=== PATIENT | male | born 1955 | race Caucasian/White ===

== ENCOUNTER 2017-04-10 19:46 | Inpatient (IN) ==
[2017-04-10] MEDS ORDERED: *HR* FentaNYL (PF) 100 MCG/2 ML VIAL IVP ONE ×2 (20:18→21:55)
[2017-04-10] MEDS ORDERED: Ondansetron 4 MG/2 ML VIAL IVP ONE (20:18)
[2017-04-10] MEDS ORDERED: 0.9 % Sodium Chloride 1,000 ML IVC ONE (20:18)
[2017-04-10 20:26] LABS: Basophils # 0.1 K/mcL (0.0-0.2); Basophils % 0.5 %; Eosinophils % 0.4 %; Hemoglobin 15.3 g/dL (12.9-16.9); Immature Granulocytes % 0.4 % (0-4); Lymphocytes # 1.6 K/mcL (0.6-4.6); Lymphocytes % 14.3 %; Mean Corpuscular Hemoglobin 31.6 pg (28.0-33.3); Mean Platelet Volume 8.6 fL (9.4-12.4); Monocytes # 0.8 K/mcL (0.0-1.3); Monocytes % 7.6 %; Neutrophils # 8.5 K/mcL (1.6-8.9); Platelet Count 341 K/mcL (140-400); Red Blood Count 4.84 M/mcL (4.19-5.50); Red Cell Distribution Width 12.2 % (11.5-14.5); Segmented Neutrophils % 76.8 %
[2017-04-10 20:30] LABS: INR 0.9; Prothrombin Time 9.7 Seconds (9.4-12.1)
--- NOTE | 2017-04-10 20:38 | Emergency Department Note ---
Disposition Clinical Impression: Incarcerated hernia Disposition: Admitted As Inpatient Condition: Good Referrals: Santiago Camp DO [Primary Care Provider] - Forms: ED Satisfaction Letter, Work/School Release Abdominal Pain HPI - General Chief Complaint: ED Abdominal Pain Stated Complaint: ABD cramps, N/V, hernia groin Time Seen by Provider: 04/10/17 19:58 Source: patient Mode of arrival: private vehicle Limitations: no limitations Nursing Notes Reviewed: Yes Vital Signs Reviewed: Yes - History of Present Illness HPI Narrative: 61-year-old male history of prior inguinal hernia repair in 2008 with mesh placement, hypertension who presents to the ER due to right inguinal pain. Patient states this started around noon today. Reports a prior history of having complications in his groin roughly one year after the procedure. He has had no surgical intervention since. Reports today he noticed some bulging there and was able to partially reduce. States that it worsened to a point that it never got that bad before. He had extreme pain as well as nausea and vomiting. Reports he had 1 normal bowel movement today. No other abdominal surgical history. No other complaints. Pt Subjective Complaint: abdominal pain Onset (ago): hour(s) Consistency: constant Location: RLQ Pain Severity: moderate Pain Scale: 6 Quality: stabbing Radiation: none Migration to: no migration Improves with: nothing Worsens with: nothing Context: history of similar episodes Associated symptoms: Reports: nausea, vomiting. Denies: diarrhea, fever, dysuria, hematuria Treatments prior to arrival: none - Related Data Home Medications Medication Instructions Recorded Confirmed Aspirin [Lo-Dose Aspirin EC] 81 mg PO DAILY 04/10/17 04/10/17 Losartan Potassium [Cozaar] 50 mg PO DAILY 04/10/17 04/10/17 Nitroglycerin [Nitrostat] 0.4 mg SL Q5M PRN 04/10/17 04/10/17 Previous Rx's Medication Instructions Recorded Metoprolol [Lopressor] 25 mg PO BID #75 tablet 10/29/14 Allergies Allergy/AdvReac Type Severity Reaction Status Date / Time No Known Allergies Allergy Verified 10/28/14 06:23 All systems ED: reviewed and negative except as stated. Constitutional: Denies: fever Cardiovascular: Denies: chest pain Respiratory: Denies: dyspnea Gastrointestinal: Reports: abdominal pain, nausea, vomiting. Denies: diarrhea Genitourinary: Denies: dysuria, hematuria Abdominal Pain PMH - Past Medical History Medical history: Reports: no medical history, arthritis, hypertension, other Male Surgical History: Reports: herniorrhaphy Psychiatric history: Reports: no psych history - Social History Smoking status: Former smoker Alcohol use: Reports: occasionally Drug use: Reports: none Physical Exam - General Limitations: no limitations General appearance: alert, anxious - Head Head exam: atraumatic - Eye Eye exam: Present: normal appearance - ENT ENT exam: normal exam - Neck Neck exam: Present: normal inspection - Chest Chest inspection: Present: normal inspection, symmetric chest wall rise - Respiratory Respiratory exam: Present: normal lung sounds bilaterally - Cardiovascular Cardiovascular exam: Present: regular rate, normal rhythm, normal heart sounds - Abdominal Exam Abdominal exam: Present: soft, tenderness (Patient has exquisite tenderness to the right inguinal area with a small mass palpated in the area.), guarding. Absent: rigidity - Male exam: Present: inguinal hernia (Right) - Extremities Exam Extremities exam: Present: normal inspection, full ROM - Expanded Upper Extremity Exam Shoulder exam: Present: normal inspection, full ROM Arm exam: Present: normal inspection, full ROM Elbow exam: Present: normal inspection, full ROM Forearm/Wrist exam: Present: normal inspection, full ROM Hand exam: Present: normal inspection, full ROM - Expanded Lower Extremity Exam Hip/Pelvis exam: Present: normal inspection, full ROM Upper leg exam: Present: normal inspection, full ROM Knee exam: Present: normal inspection, full ROM Lower leg exam: Present: normal inspection, full ROM Ankle exam: Present: normal inspection, full ROM Foot/toe exam: Present: normal inspection, full ROM - Psychiatric Psychiatric exam: Present: anxious Course Course Narrative: Patient seen and examined. He is noted to have an inguinal mass. I attempted to place the patient in Trendelenburg and reduce without success. I will speak with the on-call surgeon as well as obtain a CT scan, labs, urinalysis. We will give him some IV fluids, pain meds and nausea medications. - Reevaluation(s) Reevaluation #1: Attending was able to manually reduce the patient's hernia. He has improvement of symptoms at this time. Reevaluation #2: I discussed results of imaging and labs with the patient as well as surgical recommendations. I offered the patient admission versus outpatient management. He feels concerned going home as he had never had his hernia not be reducible before. States that it continues to come out whenever he stands up or coughs. He feels more comfortable staying in the hospital. His pain is well-controlled at this time. No evidence of incarcerated hernia on exam after CT imaging. - Consultations Consultation #1: I spoke with the on-call surgeon Dr. Smith given the physical exam findings and concern for incarcerated or strangulate and hernia. Patient has CT orders and. He reports to give him a call if the patient is back from CT. Time: 20:37 Consultation #2: I spoke again with the on-call surgeon Dr. Ambriz. Reported that the hernia was manually reduced and the patient's CT scan was up for review. Consultation #3: Discussed the patient with Dr. Ambriz. The patient feels more comfortable staying here at this time. He recommends to admit to the hospitalist and they will see the patient in consultation. Vital Signs Temperature 98.9 F 04/10/17 19:51 Pulse Rate 79 04/10/17 19:51 Respiratory Rate 18 04/10/17 19:51 Blood Pressure 186/103 04/10/17 19:51 O2 Sat by Pulse Oximetry 98 04/10/17 19:51 Temperature 98.9 F 04/10/17 19:51 Pulse Rate 71 04/10/17 22:36 Respiratory Rate 18 04/10/17 22:36 Blood Pressure 145/83 04/10/17 22:36 O2 Sat by Pulse Oximetry 98 04/10/17 22:36 Oxygen Delivery Oxygen Delivery Room Air Abdominal Pain - MDM Narrative Medical decision making narrative: 61-year-old male presents to the ER due to right inguinal pain. Prior history of hernia repair in 2008 here. Pain started around noon today with a noticeable bulge. He was able to partially reduce it earlier but it worsened throughout the day. He came and nauseated and vomiting with pain focal to that area. He had an incarcerated hernia on exam at presentation. I attempted to reduce the hernia without success. Attending was able to reduce his hernia with immediate relief of symptoms. CT scan without evidence of hernia at this time with some bowel wall edema in the adjacent area. Otherwise reviewed and unremarkable. I spoke with the on-call surgeon several times about this patient. His pain is well improved after reduction. He is admitted to the hospitalist service with surgical consultation. - Lab Data Lab results reviewed: Yes I reviewed the patient's lab results. Result diagrams: 04/10/17 20:13 04/10/17 20:13 Lab Results 04/10/17 04/10/17 04/10/17 Range/Units 20:13 20:13 20:13 WBC 11.0 (4.3-11.1) K/mcL RBC 4.84 (4.19-5.50) M/mcL Hgb 15.3 (12.9-16.9) g/dL Hct 45.0 (37.5-50.1) % MCV 93.0 (83.0-100.0) fL MCH 31.6 (28.0-33.3) pg MCHC 34.0 (31.6-35.5) g/dL RDW 12.2 (11.5-14.5) % Plt Count 341 (140-400) K/mcL MPV 8.6 L (9.4-12.4) fL Immature Gran % 0.4 (0-4) % Seg Neutrophils % 76.8 % Lymphocytes % 14.3 % Monocytes % 7.6 % Eosinophils % 0.4 % Basophils % 0.5 % Neutrophils # 8.5 (1.6-8.9) K/mcL Lymphocytes # 1.6 (0.6-4.6) K/mcL Monocytes # 0.8 (0.0-1.3) K/mcL Eosinophils # 0.0 (0.0-0.6) K/mcL Basophils # 0.1 (0.0-0.2) K/mcL PT 9.7 (9.4-12.1) Seconds INR 0.9 Sodium 133 L (136-145) mEq/L Potassium 4.5 (3.5-5.1) mEq/L Chloride 101 (98-107) mEq/L Carbon Dioxide 24 (23-29) mEq/L BUN 16 (8-23) mg/dL Creatinine 0.99 (0.70-1.30) mg/dL Est GFR ( Amer) > 60 (> 60) Est GFR (Non-Af Amer) > 60 (> 60) BUN/Creatinine Ratio 16 (6-26) Glucose 111 H (70-105) mg/dL Calculated Osmolality 278 L (280-300) Lactic Acid (0.5-2.2) mmol/L Calcium 9.9 (8.6-10.3) mg/dL Total Bilirubin 0.9 (0.3-1.0) mg/dL Direct Bilirubin 0.2 (0.0-0.2) mg/dL Indirect Bilirubin 0.7 (0.0-1.2) mg/dL AST 17 (13-39) Units/L ALT 17 (7-52) Units/L Alkaline Phosphatase 74 (34-104) Units/L Serum Total Protein 6.9 (6.4-8.9) g/dL Albumin 4.2 (3.5-5.7) g/dL Globulin 2.7 (2.4-3.5) g/dL Albumin/Globulin Ratio 1.6 (1.1-2.2) Lipase 13 (11-82) Units/L Urine Color (Yellow) Urine Clarity (Clear) Urine pH (5.0-8.0) pH Units Ur Specific Carson (1.010-1.025) Urine Protein (Neg-Trace) mg/dL Urine Glucose (UA) (Normal) mg/dL Urine Ketones (Negative) mg/dL Urine Blood (Negative) Urine Nitrite (Negative) Urine Bilirubin (Negative) Urine Urobilinogen (Normal) mg/dL Ur Leukocyte Esterase (Negative) Urine Microscopic RBC (0-3) per hpf Urine Microscopic WBC (0-3) per hpf Ur Squamous Epith Cells (None-Few) per lpf Urine Bacteria (None-Few) per hpf Hyaline Casts (None-Few) per lpf Ur Culture Indicated? (NO) 04/10/17 04/10/17 Range/Units 20:13 20:56 WBC (4.3-11.1) K/mcL RBC (4.19-5.50) M/mcL Hgb (12.9-16.9) g/dL Hct (37.5-50.1) % MCV (83.0-100.0) fL MCH (28.0-33.3) pg MCHC (31.6-35.5) g/dL RDW (11.5-14.5) % Plt Count (140-400) K/mcL MPV (9.4-12.4) fL Immature Gran % (0-4) % Seg Neutrophils % % Lymphocytes % % Monocytes % % Eosinophils % % Basophils % % Neutrophils # (1.6-8.9) K/mcL Lymphocytes # (0.6-4.6) K/mcL Monocytes # (0.0-1.3) K/mcL Eosinophils # (0.0-0.6) K/mcL Basophils # (0.0-0.2) K/mcL PT (9.4-12.1) Seconds INR Sodium (136-145) mEq/L Potassium (3.5-5.1) mEq/L Chloride (98-107) mEq/L Carbon Dioxide (23-29) mEq/L BUN (8-23) mg/dL Creatinine (0.70-1.30) mg/dL Est GFR ( Amer) (> 60) Est GFR (Non-Af Amer) (> 60) BUN/Creatinine Ratio (6-26) Glucose (70-105) mg/dL Calculated Osmolality (280-300) Lactic Acid 1.1 (0.5-2.2) mmol/L Calcium (8.6-10.3) mg/dL Total Bilirubin (0.3-1.0) mg/dL Direct Bilirubin (0.0-0.2) mg/dL Indirect Bilirubin (0.0-1.2) mg/dL AST (13-39) Units/L ALT (7-52) Units/L Alkaline Phosphatase (34-104) Units/L Serum Total Protein (6.4-8.9) g/dL Albumin (3.5-5.7) g/dL Globulin (2.4-3.5) g/dL Albumin/Globulin Ratio (1.1-2.2) Lipase (11-82) Units/L Urine Color Yellow (Yellow) Urine Clarity Clear (Clear) Urine pH 5.5 (5.0-8.0) pH Units Ur Specific Carson 1.028 H (1.010-1.025) Urine Protein Trace (Neg-Trace) mg/dL Urine Glucose (UA) Normal (Normal) mg/dL Urine Ketones 15 H (Negative) mg/dL Urine Blood Negative (Negative) Urine Nitrite Negative (Negative) Urine Bilirubin Negative (Negative) Urine Urobilinogen Normal (Normal) mg/dL Ur Leukocyte Esterase Negative (Negative) Urine Microscopic RBC 5-15 H (0-3) per hpf Urine Microscopic WBC 0-3 (0-3) per hpf Ur Squamous Epith Cells Many H (None-Few) per lpf Urine Bacteria None Seen (None-Few) per hpf Hyaline Casts None Seen (None-Few) per lpf Ur Culture Indicated? NO (NO) - Radiology Data Radiology results reviewed: Yes I reviewed the patient's radiology results. Abdomen/Pelvis CT 04/10/17 20:19 IMPRESSION: Several mildly thickened loops of small bowel in the right lower quadrant and pelvis, nonspecific but possibly related to enteritis. No overt evidence of bowel obstruction. Small amount of free fluid in the pelvis is nonspecific, possibly reactive. Small 5 mm noncalcified nodule in the right lower lobe. Follow-up recommendations as below. RECOMMENDATIONS: Fleischner Society guidelines for follow-up and management of incidentally detected pulmonary nodules: Single Solid Nodule: Nodule size less than 6 mm In a low-risk patient, no routine follow-up. In a high-risk patient, optional CT at 12 months. - Low risk patients include individuals with minimal or absent history of smoking and other known risk factors. - High risk patients include individuals with a history or smoking or known risk factors. Radiology 2017 http://pubs.rsna.org/doi/full/[email or web address]/[email or web address] D/ / 04/10/2017 21:42:37 Montrell Aden MD / ana Interpreting Provider: Montrell Aden MD S.Louisa - BriannaANick Situation: Demographics, MOA Background: Presenting Complaint, Relevant PMH, Meds, & Allergies Assessment: Course and respsone to treatment, Exam Concerns, Patient/Family Expectation, Pertinant Lab Results Recommendation: Barrier(s) to disposition, Recommendation based on pending studies, treatments, or consults S.B.A.Adolfo Report Given to: Dr. Kamaljit Marcial Repor Time: 22:53 Attestation Statement - Attestation Attestation: I, Hayden Marie MD, personally evaluated this patient and discussed their management with the resident physician. I reviewed the resident's note and agree with the documented findings, medical decision making, and plan of care. 61-year-old male with history of right inguinal hernia repair 9 years ago presents to the emergency department with a complaint of pain in the right inguinal region which started about noon today. About 4 PM he noticed a bulge in the right groin and had increased pain. He states he went home and laid down in the saws that did not seem to go down some of the pain improved but then it got worse. He developed severe pain with nausea and vomiting. On examination patient is a well-developed well-nourished male in no acute distress but does appear to be in severe discomfort. He is alert and oriented 3. There is no cyanosis or diaphoresis. Breath sounds are equal bilaterally. Heart regular rate and rhythm. Abdomen is soft with present bowel sounds. There is an obvious firm tender bulge in the right inguinal region. Labs reviewed. I was able to reduce the hernia with constant firm pressure for several minutes. Patient had improvement in his discomfort but continues to complain of pain in the right inguinal region. CT of the abdomen and pelvis with contrast obtained and shows several mildly thickened loops of small bowel in the right lower quadrant and pelvis, nonspecific but possibly related to enteritis. No overt evidence of bowel obstruction. Dr. Sheets discussed the case with the surgeon nurse practitioner per diem, Dr. Ambriz. The hospitalist , Dr. Mari, was consulted and accepted the admission of the patient medical service with surgery consultation.
[2017-04-10 20:46] LABS: Alanine Aminotransferase 17 Units/L (7-52); Albumin 4.2 g/dL (3.5-5.7); Albumin/Globulin Ratio 1.6 (1.1-2.2); Alkaline Phosphatase 74 Units/L (34-104); Aspartate Amino Transferase 17 Units/L (13-39); BUN/Creatinine Ratio 16 (6-26); Bilirubin,Direct 0.2 mg/dL (0.0-0.2); Bilirubin,Indirect 0.7 mg/dL (0.0-1.2); Bilirubin,Total 0.9 mg/dL (0.3-1.0); Blood Urea Nitrogen 16 mg/dL (8-23); Calcium 9.9 mg/dL (8.6-10.3); Carbon Dioxide 24 mEq/L (23-29); Chloride 101 mEq/L (98-107); Globulin 2.7 g/dL (2.4-3.5); Glucose 111 mg/dL (70-105); Lipase 13 Units/L (11-82); Osmolality,Calculated 278 (280-300); Potassium 4.5 mEq/L (3.5-5.1); Sodium 133 mEq/L (136-145); Total Protein 6.9 g/dL (6.4-8.9); eGFR For African Americans > 60 (> 60); eGFR For Non-African Americans > 60 (> 60)
[2017-04-10 21:09] LABS: Bilirubin,Urine Negative (Negative); Blood,Urine Negative (Negative); Clarity,Urine Clear (Clear); Color,Urine Yellow (Yellow); Glucose,Urine (UA) Normal (Normal); Ketones,Urine 15 mg/dL (Negative); Leukocyte Esterase,Urine Negative (Negative); Nitrite,Urine Negative (Negative); PH,Urine 5.5 pH Units (5.0-8.0); Protein,Urine Trace mg/dL (Neg-Trace); Specific Gravity,Urine 1.028 (1.010-1.025); Urobilinogen,Urine Normal (Normal)
[2017-04-10 21:15] LABS: Bacteria,Urine None Seen per hpf (None-Few); Hyaline Casts,Urine None Seen per lpf (None-Few); Squamous Epithelial Cell,Urine Many per lpf (None-Few); WBC,Urine 0-3 per hpf (0-3)
--- NOTE | 2017-04-10 23:38 | Internal Med History&Physical ---
<Conner Cummings - Last Filed: 04/11/17 01:10> Date of Encounter: 04/11/17 Time of Encounter: 12:45 Assessment and Plan (1) Incarcerated hernia Current visit: Yes Status: Acute History of right inguinal hernia repaired in 2008 -- recurred in 2009 -- has been manually reducing since then with no further follow up Current incident irreducible at home; reduced in ED with significant effort -- small amount of herniated tissue still palpable on exam -- pain currently minimal Dr. Ambriz (surgery) consulted by ED prior to transfer to medical floor -- will keep patient NPO -- cont monitor tele and O2 -- PRN pain medications ordered -- NS at 125mL/hr -- await surg recommendations (2) Excessive drinking of alcohol Current visit: Yes Status: Chronic Drinks 6 beers daily No apparent signs/symptoms of withdrawal at this time Initiated CIWA protocol with necessary PRN orders (3) Hypertension Current visit: Yes Status: Acute Cont home meds Monitor Qualifiers: Hypertension type: essential hypertension Qualified Code(s): I10 - Essential (primary) hypertension (4) DVT prophylaxis Current visit: Yes Status: Acute Hold Rx prophylaxis SCDs and ambulate TID Internal Medicine - H&P: HPI Chief complaint: irreducible hernia Admitted From: Emergency Dept Plans for Post Hospital Care: Home History of present illness: Mr. Jimenez is a 61 year old male with apparent history of of right inguinal hernia and is s/p hernia repair in 2008. Had recurrence since 2009 that is usually induced by strenuous work and manually reducible. Recurrent bulging developed today with became irreducible and severely painful. Pain localized to right inguinal region over tissue bulge, was sharp/pulling in quality, and associated with diffuse abdominal cramping and several episodes of emesis. He tried to reduce it as he normally would by massaging area while supine which failed over 1 hour of effort. Patient did have BM during acute course. Denies fevers, syncope/presyncope, chest pain, palpitations, shortness of air, hematemesis, upper abdominal pain, dysuria, or leg swelling. Hernia was reduced in ED. Surg consulted (Dr. Ambriz) by ED team and agrees to see patient on IP basis. Past Med Surg Social Fam HX - Past Medical History Attestation: Yes The following information was validated with the patient. Source: patient Medical history: no medical history, arthritis, hypertension, other Psychiatric history: no psych history - Past Surgical History Surgical History: herniorrhaphy, other - Social History Smoking Status: Former smoker Smokeless Tobacco Status: Yes Alcohol use: occasionally, heavy (Beer -- (one) 6-pack per day) Drug use: none - Family History Mother Living Status: Hx Family Cardiac Disorders: Yes (rheumatic fever causing decreased heart function) Hx Family Respiratory Disorders: No Hx Family Cancer: No Hx Family GI Disorders: No Hx Family Endocrine Disorder: No Hx Family Neuromuscular Disorders: No Hx Family Neurologic Disorders: No Hx Family HEENT Disorders: No Hx Family Autoimmune Disorders: No Father Living Status: Hx Family Cardiac Disorders: Yes (irregular heart beat causing pacemaker placement.) Internal Medicine - H&P: Meds Metoprolol [Lopressor] 25 mg PO BID #75 tablet 10/29/14 [Rx] Aspirin [Lo-Dose Aspirin EC] 81 mg PO DAILY 04/10/17 [History] Losartan Potassium [Cozaar] 50 mg PO DAILY 04/10/17 [History] Nitroglycerin [Nitrostat] 0.4 mg SL Q5M PRN 04/10/17 [History] 3 Allergy/AdvReac Type Severity Reaction Status Date / Time No Known Allergies Allergy Verified 10/28/14 06:23 All Systems PM: A 10-system review of systems was performed and is negative for pertinent findings except as documented above in the HPI. - Constitutional Vitals: Temp Pulse Resp BP Pulse Ox 98.9 F 71 18 145/83 98 04/10/17 19:51 04/10/17 22:36 04/10/17 22:36 04/10/17 22:36 04/10/17 22:36 General appearance: Present: A&O X 3, no acute distress, answers questions appropriately - Head Head exam: Present: atraumatic, normocephalic - Eye Eye exam: Present: normal appearance, PERRL, conjuntiva pink, sclera anicteric - Neck Neck exam general surgery: Present: supple, trachea midline. Absent: lymphadenopathy - Respiratory Respiratory exam: Present: CTAB. Absent: accessory muscle use, rales, respiratory distress, rhonchi, stridor, wheezes - Cardiovascular Cardiovascular exam: Present: RRR, +S1, +S2. Absent: diastolic murmur, gallop, rubs, systolic murmur - GI/Abdominal GI/Abdominal exam: Present: normal bowel sounds, soft, no peritoneal signs. Absent: distended, tenderness Additional comments: Palpable soft tissue prominence in right inguinal region that is mildly tender to palpation; unable to reduce. Per patient, significant improvement over status prior to ED reduction. - Extremities Exam Extremities exam: Present: warm, radial pulses palpable and symmetrical. Absent : calf tenderness, cyanotic, pedal edema - Neurological Exam Neurological exam: Absent: facial droop, speech deficit - Skin Skin exam: Present: dry, intact, normal color. Absent: cyanosis, diaphoretic, mottled, pallor, rash Internal Med - H&P Results - Labs CBC & Chem 7: 04/10/17 20:13 04/10/17 20:13 <Yumiko Jones - Last Filed: 04/11/17 04:45> Date of Encounter: 04/11/17 Internal Medicine - H&P: HPI History of present illness: Mr. Jimenez is a 61 year old male All Systems PM: A 10-system review of systems was performed and is negative for pertinent findings except as documented above in the HPI. - Constitutional Vitals: Temp Pulse Resp BP Pulse Ox 97.7 F 65 16 142/78 99 04/11/17 03:58 04/11/17 03:58 04/11/17 03:58 04/11/17 03:58 04/11/17 03:58 Internal Med - H&P Results - Labs CBC & Chem 7: 04/10/17 20:13 04/10/17 20:13 - Attending Attestation I have seen and examined this patient independently. I have discussed with resident physician Dr. Cummings regarding the management plan, agreed with the documentation.
[2017-04-11] MEDS ORDERED: Nitroglycerin 0.4 MG TAB.SUBL SL PRN (00:42)
[2017-04-11] MEDS ORDERED: Naloxone 0.4 MG/ML INJ IVP PRN (00:59)
[2017-04-11] MEDS ORDERED: Acetaminophen 325 MG TABLET PO PRN (00:59)
[2017-04-11] MEDS ORDERED: traMADol 50 MG TABLET PO PRN (00:59)
[2017-04-11] MEDS ORDERED: *HR* LORazepam 2 MG/ML VIAL IVP PRN ×3 (01:02)
[2017-04-11] MEDS: 0.9 % Sodium Chloride 1,000 ML IVC SCH ×2 (01:52→09:13)
[2017-04-11 04:47] LABS: BUN/Creatinine Ratio 15 (6-26); Blood Urea Nitrogen 13 mg/dL (8-23); Calcium 8.4 mg/dL (8.6-10.3); Carbon Dioxide 25 mEq/L (23-29); Chloride 109 mEq/L (98-107); Glucose 105 mg/dL (70-105); Osmolality,Calculated 286 (280-300); Potassium 4.3 mEq/L (3.5-5.1); Sodium 138 mEq/L (136-145); eGFR For African Americans > 60 (> 60); eGFR For Non-African Americans > 60 (> 60)
[2017-04-11] MEDS ORDERED: Thiamine (B-1) 100 MG TABLET PO SCH (09:00)
[2017-04-11] MEDS ORDERED: Vitamin B Complex/Vit C/Vit E 1 EACH TABLET PO SCH (09:00)
[2017-04-11] MEDS ORDERED: Folic Acid 1 MG TABLET PO SCH (09:00)
--- NOTE | 2017-04-11 10:07 | Event Note ---
Date of Encounter: 04/11/17 Time of Encounter: 09:30 patient seen and examined; came to the ER overnight with incarcerated right inguinal hernia; was repaired open in 2008. The emergency department was able to reduce the hernia and the patient elected to be admitted because he wanted the problem taken care of this admission; Due to age and comorbidities, his history of a prior hernia repair, and the fact that his problem is no longer emergent, I would like to see him in my office today for a full evaluation and plan for PAT, and schedule for minimally invasive repair in the near future. The patient was in agreement with this plan.
--- NOTE | 2017-04-11 10:45 | Discharge Summary ---
Date of Encounter: 04/11/17 Time of Encounter: 10:43 - Discharge Diagnosis (1) Incarcerated hernia Priority: Primary Status: Acute Comments: right inguinal hernia repaired in 2009 Status post manual reduction (2) Alcohol abuse Priority: Secondary Status: Acute (3) Osteoarthritis Priority: Secondary Status: Acute Qualifiers: Osteoarthritis location: unspecified site Osteoarthritis type: unspecified Qualified Code(s): M19.90 - Unspecified osteoarthritis, unspecified site (4) Hypertension Priority: Secondary Status: Acute Qualifiers: Hypertension type: essential hypertension Qualified Code(s): I10 - Essential (primary) hypertension - Discharge Medications Prescriptions: Tramadol HCl [Ultram] 50 mg PO TID PRN 5 Days #25 tab PRN Reason: Pain Home Medications: Metoprolol [Lopressor] 25 mg PO BID #75 tablet 10/29/14 [Rx] Aspirin [Lo-Dose Aspirin EC] 81 mg PO DAILY 04/10/17 [History] Losartan Potassium [Cozaar] 50 mg PO DAILY 04/10/17 [History] Nitroglycerin [Nitrostat] 0.4 mg SL Q5M PRN 04/10/17 [History] Tramadol HCl [Ultram] 50 mg PO TID PRN 5 Days #25 tab 04/11/17 [Rx] Allergies/Adverse Reactions: 3 Allergy/AdvReac Type Severity Reaction Status Date / Time No Known Allergies Allergy Verified 10/28/14 06:23 Date of admission: 04/11/17 04:45 Primary care physician: Santiago Camp DO - Patient Status Disposition: Home, Self-Care Condition: Good Overall status at discharge: patient is back to baseline - Discharge Instructions Follow Up With: Santiago Camp DO [Primary Care Provider] - Additional Instructions: Follow-up with Dr. Ambriz later today. Tramadol as needed for pain - Diet and Activity Activity: increase activity as tolerated Diet: regular diet Hospital course: Mr. Jimenez is a 61 year old male with alcohol use, hypertension, osteoarthritis , history of of right inguinal hernia and is s/p hernia repair in 2008. Had recurrence since 2009 that is usually induced by strenuous work and manually reducible. Recurrent bulging developed with became irreducible and severely painful. Pain localized to right inguinal region over tissue bulge, was sharp/pulling in quality, and associated with diffuse abdominal cramping and several episodes of emesis. The right inguinal hernia was manually reduced by the emergency room physician. Patient was evaluated in the morning by Dr. Ambriz who agreed to see the patient as an outpatient today at his office as he sdoes not require an emergent procedure at the moment. - Time Spent with Patient Total time spent providing and/or coordinating discharge services: Greater than 30 minutes (40 min) - Constitutional Vitals: Temp Pulse Resp BP Pulse Ox 98.0 F 59 15 136/77 98 04/11/17 07:46 04/11/17 07:46 04/11/17 07:46 04/11/17 07:46 04/11/17 07:46 General appearance: Present: A&O X 3, no acute distress, answers questions appropriately - Head Head exam: Present: atraumatic, normocephalic - Eye Eye exam: Present: PERRL, conjuntiva pink, sclera anicteric Pupils: Present: PERRL - Neck Neck exam general surgery: Present: supple, trachea midline. Absent: lymphadenopathy - Respiratory Respiratory exam: Present: CTAB. Absent: accessory muscle use, rales, rhonchi, wheezes - Cardiovascular Cardiovascular exam: Present: RRR, +S1, +S2. Absent: diastolic murmur, gallop, rubs, systolic murmur - GI/Abdominal GI/Abdominal exam: Present: normal bowel sounds, soft, no peritoneal signs. Absent: distended, tenderness - Extremities Exam Extremities exam: Present: warm, radial pulses palpable and symmetrical. Absent : calf tenderness, cyanotic, pedal edema Additional comments: Right inguinal scar, no evidence of incarcerated hernia - Neurological Exam Neurological exam: Present: CN II-XII intact, oriented X3, no focal deficits. Absent: pronater drift, facial droop, speech deficit - Skin Skin exam: Present: dry, intact - VTE Documentation of Mechanical Device: Intermittent pneumatic compression device
[2017-04-11 10:48] VITALS: BP 137/72
--- NOTE | 2017-04-15 15:11 | Electrocardiograph Report ---
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
== END 2017-04-11 13:57 | disposition home or self-care (01) | DRG 395 ==
LOC: 3ANU 19:46 → EMEROO 19:46 → 3ANU 23:38
PROVIDERS: ADMIT Pediatrics; ATTEND Internal Medicine

== ENCOUNTER 2018-10-07 09:43 | Inpatient (IN) ==
[2018-10-07] MEDS ORDERED: 0.9 % Sodium Chloride 1,000 ML IVC ONE ×2 (09:46→09:54)
[2018-10-07] MEDS ORDERED: Pantoprazole 40 MG VIAL IVP ONE (09:47)
--- NOTE | 2018-10-07 09:57 | Emergency Department Note ---
Disposition Clinical Impression: GI bleed Qualifiers: GI bleed type/associated pathology: unspecified gastrointestinal hemorrhage type Qualified Code(s): K92.2 - Gastrointestinal hemorrhage, unspecified Disposition: Admitted As Inpatient Condition: Fair Time of Disposition: 20:52 GI Bleed HPI - General Chief complaint: ED GI Bleed Stated complaint: rectal bleed/weakness Time Seen by Provider: 10/07/18 09:46 Source: patient, family Mode of arrival: ambulatory Limitations: no limitations Nursing Notes Reviewed: Yes Vital Signs Reviewed: Yes - History of Present Illness HPI Narrative: 63-year-old male past medical history of left ventricular hypertrophy secondary to chronic hypertension on baby aspirin a day without other anticoagulant presenting for one day history of rectal bleed, weakness and headache. Patient states this headache began last evening feels like a burning in his head, patient states that he had to grossly bloody bowel movements today while toileting. Patient brings in a stool sample which is grossly bloody. Patient does appear pale, his vitals are currently within normal limits he does not appear to be in acute distress, the patient denies any other concerns or complaints at this time. Upon my initial evaluation, my general impression is that the patient is awake, alert, oriented, engaged to conversation and answering questions appropriately. There are no overt lateralizing signs, the patient is in no acute distress; his skin appears to be pale, but not cyanotic, and not diaphoretic, he is sitting up in hospital bed interacting appropriately with environment. Pt Subjective Complaint: gross hematochezia Onset (ago): day(s) Consistency: constant Severity: moderate Associated symptoms: Reports: headaches, malaise, weakness Treatments Prior to Arrival: none - Related Data Home Medications Medication Instructions Recorded Confirmed Aspirin [Lo-Dose Aspirin EC] 81 mg PO DAILY 04/10/17 10/07/18 Losartan Potassium [Cozaar] 50 mg PO DAILY 04/10/17 10/07/18 Nitroglycerin [Nitrostat] 0.4 mg SL Q5M PRN 04/10/17 10/07/18 Baclofen 20 mg PO DAILY 10/07/18 10/07/18 Previous Rx's Medication Instructions Recorded Metoprolol [Lopressor] 25 mg PO BID #75 tablet 10/29/14 Allergies Allergy/AdvReac Type Severity Reaction Status Date / Time No Known Allergies Allergy Verified 10/07/18 09:56 Review of Systems: *See History of Present Illness for more detail Constitutional: Denies: fever, chills Cardiovascular: Denies: chest pain Respiratory: Denies: dyspnea, cough, hemoptysis Gastrointestinal: Patient admits to gross hematochezia. Patient admits to chronic crampy abdominal pain. Denies: nausea, vomiting, diarrhea, constipation, hematemesis, melena Genitourinary: Denies: hematuria Musculoskeletal: Denies: back pain, neck pain Neurological: Admits: headache, weakness, lightheadedness/dizziness, denies: numbness, paresthesias, difficulty with ambulation. Endocrine: Admits: fatigue All systems ED: reviewed and negative except as stated. Review of Systems: As Per HPI Past Medical History - Past Medical History Medical history: Reports: no medical history, arthritis, hypertension, other Surgical history: Reports: herniorrhaphy, other Psychiatric history: Reports: no psych history - Social History Smoking Status: Never smoker Smokeless Tobacco Status: Yes Alcohol use: Reports: occasionally, heavy Drug use: Reports: none Physical Exam Constitutional: Patient appears to be in mild distress secondary to GI bleed, he is otherwise [id number], engaged to conversation, speech is fluid, answers questions appropriately Neuro: GCS 15, no overt focal neurological deficits Head: Atraumatic, normocephalic Eyes: Pupils equal, round and reactive to light, no scleral icterus, no conjunctival injection Neck: Trachea midline without deviation. Anterior neck is supple without swelling. *Chest: Symmetric chest wall rise *Heart: Cardiac rhythm and rate are regular with S1 and S2 , no S3 or S4 appreciated, no murmurs, gallops, rubs, or clicks. *Lungs: Lungs are clear to auscultation bilaterally, without accessory muscle use or prolonged expiratory phase. No wheezes, rhonchi or stridor appreciated. Abdomen: Abdomen is flat, soft to palpation, normal bowel sounds. No abdominal bruit auscultated. Non-distended, non-rigid, no organomegaly, no ascites appreciated. No pulsatile mass, no tenderness or guarding to palpation in all four quadrants, no rebound Extremities: Normal capillary refill without evidence of pedal edema, joint swelling or erythema. Pulses/motor intact in all 4 extremities. Psychiatric exam: Patient displays a normal affect and mood for the environment. No overt signs of hallucination. Integumentary: Patient appears pale, warm, dry, intact, normal color. No rash, cyanosis, diaphoresis, erythema, - General Limitations: no limitations General appearance: alert, in no apparent distress Course Course Narrative: 2 large-bore IVs will be established in bilateral antecubital fossa with 2 L IV fluid saline bolus administered. Patient stool sample was grossly bloody and will not require Hemoccult at this time. Abdominal labs, PT/PTT, type and screen 80 mg of Protonix. Vital Signs Temperature 98.2 F 10/07/18 09:45 Pulse Rate 88 10/07/18 09:45 Respiratory Rate 15 10/07/18 09:45 Blood Pressure 113/77 10/07/18 09:45 O2 Sat by Pulse Oximetry 100 10/07/18 09:45 Temperature 97.8 F 10/07/18 19:00 Pulse Rate 85 10/07/18 19:00 Respiratory Rate 16 10/07/18 19:00 Blood Pressure 106/66 10/07/18 19:00 O2 Sat by Pulse Oximetry 100 10/07/18 19:00 Oxygen Delivery Oxygen Delivery Room Air GI Bleed - [facility] Narrative Medical decision making narrative: Patient noted the hospital medicine service for further evaluation and management of GI bleed. Patient verbalizes understanding and agreement this plan. The patient is hemodynamically stable time of admission. - Lab Data Lab results reviewed: Yes I reviewed the patient's lab results. Result diagrams: 10/07/18 16:39 10/07/18 09:58 Lab Results 10/07/18 10/07/18 10/07/18 Range/Units 09:58 09:58 09:58 WBC 13.7 H (4.3-11.1) K/mcL RBC 3.90 L (4.19-5.50) M/mcL Hgb 12.4 L (12.9-16.9) g/dL Hct 36.6 L (37.5-50.1) % MCV 93.8 (83.0-100.0) fL MCH 31.8 (28.0-33.3) pg MCHC 33.9 (31.6-35.5) g/dL RDW 13.7 (11.5-14.5) % Plt Count 277 (140-400) K/mcL MPV 9.2 L (9.4-12.4) fL Immature Gran % 0.5 (0-4) % Seg Neutrophils % 42.5 % Lymphocytes % 48.4 % Monocytes % 7.7 % Eosinophils % 0.4 % Basophils % 0.5 % Neutrophils # 5.8 (1.6-8.9) K/mcL Lymphocytes # 6.6 H (0.6-4.6) K/mcL Monocytes # 1.1 (0.0-1.3) K/mcL Eosinophils # 0.1 (0.0-0.6) K/mcL Basophils # 0.1 (0.0-0.2) K/mcL PT 11.0 (9.4-12.1) Seconds INR 1.0 APTT 30.4 (26.0-36.0) Seconds Sodium 131 L (136-145) mEq/L Potassium 4.8 (3.5-5.1) mEq/L Chloride 99 (98-107) mEq/L Carbon Dioxide 26 (23-29) mEq/L BUN 24 H (8-23) mg/dL Creatinine 0.85 (0.70-1.30) mg/dL Est GFR ( Amer) > 60 (> 60) Est GFR (Non-Af Amer) > 60 (> 60) BUN/Creatinine Ratio 28 H (6-26) Glucose 133 H (70-105) mg/dL Calculated Osmolality 278 L (280-300) Calcium 8.6 (8.6-10.3) mg/dL Total Bilirubin 0.5 (0.3-1.0) mg/dL Direct Bilirubin 0.1 (0.0-0.2) mg/dL Indirect Bilirubin 0.4 (0.0-1.2) mg/dL AST 48 H (13-39) Units/L ALT 62 H (7-52) Units/L Alkaline Phosphatase 162 H (34-104) Units/L Serum Total Protein 5.7 L (6.4-8.9) g/dL Albumin 3.4 L (3.5-5.7) g/dL Globulin 2.3 L (2.4-3.5) g/dL Albumin/Globulin Ratio 1.5 (1.1-2.2) Blood Type Antibody Screen 10/07/18 Range/Units 09:58 WBC (4.3-11.1) K/mcL RBC (4.19-5.50) M/mcL Hgb (12.9-16.9) g/dL Hct (37.5-50.1) % MCV (83.0-100.0) fL MCH (28.0-33.3) pg MCHC (31.6-35.5) g/dL RDW (11.5-14.5) % Plt Count (140-400) K/mcL MPV (9.4-12.4) fL Immature Gran % (0-4) % Seg Neutrophils % % Lymphocytes % % Monocytes % % Eosinophils % % Basophils % % Neutrophils # (1.6-8.9) K/mcL Lymphocytes # (0.6-4.6) K/mcL Monocytes # (0.0-1.3) K/mcL Eosinophils # (0.0-0.6) K/mcL Basophils # (0.0-0.2) K/mcL PT (9.4-12.1) Seconds INR APTT (26.0-36.0) Seconds Sodium (136-145) mEq/L Potassium (3.5-5.1) mEq/L Chloride (98-107) mEq/L Carbon Dioxide (23-29) mEq/L BUN (8-23) mg/dL Creatinine (0.70-1.30) mg/dL Est GFR ( Amer) (> 60) Est GFR (Non-Af Amer) (> 60) BUN/Creatinine Ratio (6-26) Glucose (70-105) mg/dL Calculated Osmolality (280-300) Calcium (8.6-10.3) mg/dL Total Bilirubin (0.3-1.0) mg/dL Direct Bilirubin (0.0-0.2) mg/dL Indirect Bilirubin (0.0-1.2) mg/dL AST (13-39) Units/L ALT (7-52) Units/L Alkaline Phosphatase (34-104) Units/L Serum Total Protein (6.4-8.9) g/dL Albumin (3.5-5.7) g/dL Globulin (2.4-3.5) g/dL Albumin/Globulin Ratio (1.1-2.2) Blood Type O POSITIVE Antibody Screen NEGATIVE - Radiology Data Radiology results reviewed: Yes I reviewed the patient's radiology results. - EKG Data EKG attestation: Yes I reviewed and interpreted this EKG. EKG results narrative: Patient's EKG shows a sinus rhythm with and are SR prime noted in V1 and V2 which appears to be new for this patient, the heart rate is 82 bpm, DE interval of 143 ms, QRS duration 10 ms, QT/QTc intervals 368/430 ms respectively. There are no significant ST segment elevations, depressions, pathologic Q waves, abnormal T-wave inversions, nor any other signs of acute ischemic change. This EKG that was performed today is generally consistent with prior EKG performed on 04/11/2017.
[2018-10-07 10:13] LABS: Basophils # 0.1 K/mcL (0.0-0.2); Basophils % 0.5 %; Eosinophils # 0.1 K/mcL (0.0-0.6); Eosinophils % 0.4 %; Hematocrit 36.6 % (37.5-50.1); Hemoglobin 12.4 g/dL (12.9-16.9); Immature Granulocytes % 0.5 % (0-4); Lymphocytes # 6.6 K/mcL (0.6-4.6); Lymphocytes % 48.4 %; Mean Corpuscular HGB Conc 33.9 g/dL (31.6-35.5); Mean Corpuscular Hemoglobin 31.8 pg (28.0-33.3); Mean Corpuscular Volume 93.8 fL (83.0-100.0); Mean Platelet Volume 9.2 fL (9.4-12.4); Monocytes # 1.1 K/mcL (0.0-1.3); Monocytes % 7.7 %; Neutrophils # 5.8 K/mcL (1.6-8.9); Platelet Count 277 K/mcL (140-400); Red Cell Distribution Width 13.7 % (11.5-14.5); Segmented Neutrophils % 42.5 %; White Blood Count 13.7 K/mcL (4.3-11.1)
[2018-10-07 10:26] LABS: Activated Partial Thrombo Time 30.4 Seconds (26.0-36.0)
[2018-10-07 10:31] LABS: Alanine Aminotransferase 62 Units/L (7-52); Albumin 3.4 g/dL (3.5-5.7); Albumin/Globulin Ratio 1.5 (1.1-2.2); Alkaline Phosphatase 162 Units/L (34-104); Aspartate Amino Transferase 48 Units/L (13-39); BUN/Creatinine Ratio 28 (6-26); Bilirubin,Direct 0.1 mg/dL (0.0-0.2); Bilirubin,Indirect 0.4 mg/dL (0.0-1.2); Bilirubin,Total 0.5 mg/dL (0.3-1.0); Blood Urea Nitrogen 24 mg/dL (8-23); Calcium 8.6 mg/dL (8.6-10.3); Carbon Dioxide 26 mEq/L (23-29); Chloride 99 mEq/L (98-107); Globulin 2.3 g/dL (2.4-3.5); Glucose 133 mg/dL (70-105); Osmolality,Calculated 278 (280-300); Potassium 4.8 mEq/L (3.5-5.1); Sodium 131 mEq/L (136-145); Total Protein 5.7 g/dL (6.4-8.9); eGFR For African Americans > 60 (> 60); eGFR For Non-African Americans > 60 (> 60)
--- NOTE | 2018-10-07 11:17 | Emergency Department Note ---
Disposition Clinical Impression: GI bleed Qualifiers: GI bleed type/associated pathology: unspecified gastrointestinal hemorrhage type Qualified Code(s): K92.2 - Gastrointestinal hemorrhage, unspecified Disposition: Admitted As Inpatient Condition: Fair Time of Disposition: 20:52 General Adult HPI - General Chief complaint: ED GI Bleed Stated complaint: rectal bleed/weakness Time Seen by Provider: 10/07/18 09:46 Source: patient, family Mode of arrival: ambulatory Limitations: no limitations - History of Present Illness Pain Scale: 0 - Related Data Home Medications Medication Instructions Recorded Confirmed Nitroglycerin [Nitrostat] 0.4 mg SL Q5M PRN 04/10/17 10/08/18 Aspirin 81 mg PO QAM 10/08/18 10/08/18 Losartan [Cozaar] 50 mg PO DAILY 10/08/18 10/08/18 Metoprolol [Lopressor] 25 mg PO BID 10/08/18 10/08/18 Allergies Allergy/AdvReac Type Severity Reaction Status Date / Time No Known Allergies Allergy Verified 10/08/18 11:27 Past Medical History - Past Medical History Medical history: Reports: no medical history, arthritis, hypertension, other Surgical history: Reports: herniorrhaphy, other Psychiatric history: Reports: no psych history - Social History Smoking Status: Never smoker Smokeless Tobacco Status: Yes Alcohol use: Reports: occasionally, heavy Drug use: Reports: none Physical Exam - General Limitations: no limitations General appearance: alert, in no apparent distress Course Vital Signs Temperature 98.2 F 10/07/18 09:45 Pulse Rate 88 10/07/18 09:45 Respiratory Rate 15 10/07/18 09:45 Blood Pressure 113/77 10/07/18 09:45 O2 Sat by Pulse Oximetry 100 10/07/18 09:45 Temperature 97.8 F 10/09/18 08:48 Pulse Rate 65 10/09/18 09:22 Respiratory Rate 16 10/09/18 09:22 Blood Pressure 134/72 10/09/18 09:22 O2 Sat by Pulse Oximetry 98 10/09/18 09:22 Oxygen Delivery Oxygen Delivery Room Air Medical Decision Making - Lab Data Result diagrams: 10/09/18 09:21 10/09/18 09:21 Lab Results 10/07/18 10/07/18 10/07/18 Range/Units 09:58 09:58 09:58 WBC 13.7 H (4.3-11.1) K/mcL RBC 3.90 L (4.19-5.50) M/mcL Hgb 12.4 L (12.9-16.9) g/dL Hct 36.6 L (37.5-50.1) % MCV 93.8 (83.0-100.0) fL MCH 31.8 (28.0-33.3) pg MCHC 33.9 (31.6-35.5) g/dL RDW 13.7 (11.5-14.5) % Plt Count 277 (140-400) K/mcL MPV 9.2 L (9.4-12.4) fL Immature Gran % 0.5 (0-4) % Seg Neutrophils % 42.5 % Lymphocytes % 48.4 % Monocytes % 7.7 % Eosinophils % 0.4 % Basophils % 0.5 % Neutrophils # 5.8 (1.6-8.9) K/mcL Lymphocytes # 6.6 H (0.6-4.6) K/mcL Monocytes # 1.1 (0.0-1.3) K/mcL Eosinophils # 0.1 (0.0-0.6) K/mcL Basophils # 0.1 (0.0-0.2) K/mcL PT 11.0 (9.4-12.1) Seconds INR 1.0 APTT 30.4 (26.0-36.0) Seconds Sodium 131 L (136-145) mEq/L Potassium 4.8 (3.5-5.1) mEq/L Chloride 99 (98-107) mEq/L Carbon Dioxide 26 (23-29) mEq/L BUN 24 H (8-23) mg/dL Creatinine 0.85 (0.70-1.30) mg/dL Est GFR ( Amer) > 60 (> 60) Est GFR (Non-Af Amer) > 60 (> 60) BUN/Creatinine Ratio 28 H (6-26) Glucose 133 H (70-105) mg/dL POC Glucose (70-99) mg/dL Calculated Osmolality 278 L (280-300) Calcium 8.6 (8.6-10.3) mg/dL Total Bilirubin 0.5 (0.3-1.0) mg/dL Direct Bilirubin 0.1 (0.0-0.2) mg/dL Indirect Bilirubin 0.4 (0.0-1.2) mg/dL AST 48 H (13-39) Units/L ALT 62 H (7-52) Units/L Alkaline Phosphatase 162 H (34-104) Units/L Serum Total Protein 5.7 L (6.4-8.9) g/dL Albumin 3.4 L (3.5-5.7) g/dL Globulin 2.3 L (2.4-3.5) g/dL Albumin/Globulin Ratio 1.5 (1.1-2.2) Triglycerides (< 150) mg/dL Cholesterol (< 200) mg/dL LDL Cholesterol, Calc (0-99) mg/dL VLDL Cholesterol, Calc (< 31) mg/dL HDL Cholesterol (40-59) mg/dL Cholesterol/HDL Ratio (0-4.9) Specimen Rejected Blood Type Antibody Screen Crossmatch 10/07/18 10/07/18 10/08/18 Range/Units 09:58 16:39 00:01 WBC 14.7 H (4.3-11.1) K/mcL RBC 1.90 L (4.19-5.50) M/mcL Hgb 9.4 L D 6.1 L D (12.9-16.9) g/dL Hct 28.0 L 18.4 L (37.5-50.1) % MCV 96.8 (83.0-100.0) fL MCH 32.1 (28.0-33.3) pg MCHC 33.2 (31.6-35.5) g/dL RDW 14.0 (11.5-14.5) % Plt Count 169 (140-400) K/mcL MPV 9.7 (9.4-12.4) fL Immature Gran % 0.5 (0-4) % Seg Neutrophils % 19.6 % Lymphocytes % 74.2 % Monocytes % 5.4 % Eosinophils % 0.2 % Basophils % 0.1 % Neutrophils # 2.9 (1.6-8.9) K/mcL Lymphocytes # 10.9 H (0.6-4.6) K/mcL Monocytes # 0.8 (0.0-1.3) K/mcL Eosinophils # 0.0 (0.0-0.6) K/mcL Basophils # 0.0 (0.0-0.2) K/mcL PT (9.4-12.1) Seconds INR APTT (26.0-36.0) Seconds Sodium (136-145) mEq/L Potassium (3.5-5.1) mEq/L Chloride (98-107) mEq/L Carbon Dioxide (23-29) mEq/L BUN (8-23) mg/dL Creatinine (0.70-1.30) mg/dL Est GFR ( Amer) (> 60) Est GFR (Non-Af Amer) (> 60) BUN/Creatinine Ratio (6-26) Glucose (70-105) mg/dL POC Glucose (70-99) mg/dL Calculated Osmolality (280-300) Calcium (8.6-10.3) mg/dL Total Bilirubin (0.3-1.0) mg/dL Direct Bilirubin (0.0-0.2) mg/dL Indirect Bilirubin (0.0-1.2) mg/dL AST (13-39) Units/L ALT (7-52) Units/L Alkaline Phosphatase (34-104) Units/L Serum Total Protein (6.4-8.9) g/dL Albumin (3.5-5.7) g/dL Globulin (2.4-3.5) g/dL Albumin/Globulin Ratio (1.1-2.2) Triglycerides (< 150) mg/dL Cholesterol (< 200) mg/dL LDL Cholesterol, Calc (0-99) mg/dL VLDL Cholesterol, Calc (< 31) mg/dL HDL Cholesterol (40-59) mg/dL Cholesterol/HDL Ratio (0-4.9) Specimen Rejected Blood Type O POSITIVE Antibody Screen NEGATIVE Crossmatch See Detail 10/08/18 10/08/18 10/08/18 Range/Units 00:31 06:28 06:28 WBC (4.3-11.1) K/mcL RBC (4.19-5.50) M/mcL Hgb (12.9-16.9) g/dL Hct (37.5-50.1) % MCV (83.0-100.0) fL MCH (28.0-33.3) pg MCHC (31.6-35.5) g/dL RDW (11.5-14.5) % Plt Count (140-400) K/mcL MPV (9.4-12.4) fL Immature Gran % (0-4) % Seg Neutrophils % % Lymphocytes % % Monocytes % % Eosinophils % % Basophils % % Neutrophils # (1.6-8.9) K/mcL Lymphocytes # (0.6-4.6) K/mcL Monocytes # (0.0-1.3) K/mcL Eosinophils # (0.0-0.6) K/mcL Basophils # (0.0-0.2) K/mcL PT (9.4-12.1) Seconds INR APTT (26.0-36.0) Seconds Sodium 135 L (136-145) mEq/L Potassium 4.4 (3.5-5.1) mEq/L Chloride 108 H (98-107) mEq/L Carbon Dioxide 20 L (23-29) mEq/L BUN 28 H (8-23) mg/dL Creatinine 0.60 L (0.70-1.30) mg/dL Est GFR ( Amer) > 60 (> 60) Est GFR (Non-Af Amer) > 60 (> 60) BUN/Creatinine Ratio 47 H (6-26) Glucose 118 H (70-105) mg/dL POC Glucose 131 H (70-99) mg/dL Calculated Osmolality 287 (280-300) Calcium 6.8 L (8.6-10.3) mg/dL Total Bilirubin (0.3-1.0) mg/dL Direct Bilirubin (0.0-0.2) mg/dL Indirect Bilirubin (0.0-1.2) mg/dL AST (13-39) Units/L ALT (7-52) Units/L Alkaline Phosphatase (34-104) Units/L Serum Total Protein (6.4-8.9) g/dL Albumin (3.5-5.7) g/dL Globulin (2.4-3.5) g/dL Albumin/Globulin Ratio (1.1-2.2) Triglycerides 147 (< 150) mg/dL Cholesterol 73 (< 200) mg/dL LDL Cholesterol, Calc 24 (0-99) mg/dL VLDL Cholesterol, Calc 29 (< 31) mg/dL HDL Cholesterol 20 L (40-59) mg/dL Cholesterol/HDL Ratio 3.7 (0-4.9) Specimen Rejected Clotted Blood Type Antibody Screen Crossmatch 10/08/18 10/08/18 Range/Units 07:08 13:41 WBC 13.0 H (4.3-11.1) K/mcL RBC 2.44 L (4.19-5.50) M/mcL Hgb 7.6 L D 7.4 L (12.9-16.9) g/dL Hct 22.1 L 22.7 L (37.5-50.1) % MCV 90.6 D (83.0-100.0) fL MCH 31.1 (28.0-33.3) pg MCHC 34.4 (31.6-35.5) g/dL RDW 15.3 H (11.5-14.5) % Plt Count 154 (140-400) K/mcL MPV 9.9 (9.4-12.4) fL Immature Gran % (0-4) % Seg Neutrophils % % Lymphocytes % % Monocytes % % Eosinophils % % Basophils % % Neutrophils # (1.6-8.9) K/mcL Lymphocytes # (0.6-4.6) K/mcL Monocytes # (0.0-1.3) K/mcL Eosinophils # (0.0-0.6) K/mcL Basophils # (0.0-0.2) K/mcL PT (9.4-12.1) Seconds INR APTT (26.0-36.0) Seconds Sodium (136-145) mEq/L Potassium (3.5-5.1) mEq/L Chloride (98-107) mEq/L Carbon Dioxide (23-29) mEq/L BUN (8-23) mg/dL Creatinine (0.70-1.30) mg/dL Est GFR ( Amer) (> 60) Est GFR (Non-Af Amer) (> 60) BUN/Creatinine Ratio (6-26) Glucose (70-105) mg/dL POC Glucose (70-99) mg/dL Calculated Osmolality (280-300) Calcium (8.6-10.3) mg/dL Total Bilirubin (0.3-1.0) mg/dL Direct Bilirubin (0.0-0.2) mg/dL Indirect Bilirubin (0.0-1.2) mg/dL AST (13-39) Units/L ALT (7-52) Units/L Alkaline Phosphatase (34-104) Units/L Serum Total Protein (6.4-8.9) g/dL Albumin (3.5-5.7) g/dL Globulin (2.4-3.5) g/dL Albumin/Globulin Ratio (1.1-2.2) Triglycerides (< 150) mg/dL Cholesterol (< 200) mg/dL LDL Cholesterol, Calc (0-99) mg/dL VLDL Cholesterol, Calc (< 31) mg/dL HDL Cholesterol (40-59) mg/dL Cholesterol/HDL Ratio (0-4.9) Specimen Rejected Blood Type Antibody Screen Crossmatch Attestation Statement - Attestation Attestation: I examined this patient and my medical decision-making was reviewed with the Resident Physician. I agree with the documented findings, disposition and treatment plan as described except to the extent set forth below. Patient 61-year-old gentleman who presents to the emergency department with chief complaint of rectal bleeding. Patient reports that started having dark bloody stools and is also been feeling lightheaded and weak. Physical exam the patient is pale abdomen is soft nontender the patient has a stool sample that he brought with him that shows black maroonish colored stool Medical decision management the patient underwent laboratory testing that showed a noncritical hemoglobin at this time. The patient will be admitted to the hospital for observation. I personally supervised and was present for the farr/critical portions of the following procedures completed by the resident:EKG.
[2018-10-07] MEDS ORDERED: Ondansetron 4 MG/2 ML VIAL IVP PRN (11:46)
[2018-10-07] MEDS ORDERED: Acetaminophen 325 MG TABLET PO PRN (11:46)
[2018-10-07] MEDS ORDERED: Naloxone 0.4 MG/ML INJ IVP PRN (11:46)
[2018-10-07] MEDS ORDERED: 0.9 % Sodium Chloride 1,000 ML ONE (12:04)
[2018-10-07] MEDS: 0.9 % Sodium Chloride 1,000 ML IVC SCH ×2 (13:34→17:53)
[2018-10-07] MEDS ORDERED: Nitroglycerin 0.4 MG TAB.SUBL SL PRN (16:15)
--- NOTE | 2018-10-07 16:21 | Internal Med History&Physical ---
Date of Encounter: 10/07/18 Time of Encounter: 16:15 Internal Medicine - H&P: HPI Chief complaint: GI bleed Admitted From: Emergency Dept History of present illness: Mr. Jimenez is a 63 year old male with known PMH of HTN and low back pain who us taking Aleve once a day from last one week now he presented to ER with bright red blood per rectum started this morning. He did have 5 episodes so far today. He does have mild lower abd pain. He denied any N/ V. He denied any previous GI Bleed. He denied any EGD / Colonoscopy work up in the past. He denied any recent weight loss. He denied any CP / SOB. He does c/o feeling weak and lethargic. Past Med Surg Social Fam HX - Past Medical History Medical history: arthritis, hypertension, other Additional medical history: back fractures Psychiatric history: no psych history - Past Surgical History Surgical History: herniorrhaphy, other Additional surgical history: hernia repair x 2 - Social History Smoking Status: Former smoker Smokeless Tobacco Status: Yes Alcohol use: occasionally, heavy Drug use: none - Family History Mother Family Member Ethnicity: Non- Living Status: Hx Family Cardiac Disorders: Yes (rheumatic fever causing decreased heart function) Hx Family Respiratory Disorders: No Hx Family Cancer: No Hx Family GI Disorders: No Hx Family Endocrine Disorder: No Hx Family Neuromuscular Disorders: No Hx Family Neurologic Disorders: No Hx Family HEENT Disorders: No Hx Family Autoimmune Disorders: No Father Adopted: No Family Member Ethnicity: Non- Living Status: Hx Family Cardiac Disorders: Yes (irregular heart beat causing pacemaker [employer] Hx Family Respiratory Disorders: No Hx Family Cancer: No Hx Family GI Disorders: No Hx Family Endocrine Disorder: No Hx Family Neuromuscular Disorders: No Hx Family Neurologic Disorders: No Hx Family HEENT Disorders: No Hx Family Autoimmune Disorders: No Internal Medicine - H&P: Meds Metoprolol [Lopressor] 25 mg PO BID #75 tablet 10/29/14 [Rx] Aspirin [Lo-Dose Aspirin EC] 81 mg PO DAILY 04/10/17 [History] Losartan Potassium [Cozaar] 50 mg PO DAILY 04/10/17 [History] Nitroglycerin [Nitrostat] 0.4 mg SL Q5M PRN 04/10/17 [History] Baclofen 20 mg PO DAILY 10/07/18 [History] Allergy/AdvReac Type Severity Reaction Status Date / Time No Known Allergies Allergy Verified 10/07/18 09:56 All Systems PM: A 10-system review of systems was performed and is negative for pertinent findings except as documented above in the HPI. Review of systems: All the systems are reviewed everything is benign except the systems and symptoms I mentioned in the history of present illness - Constitutional Vitals: Temp Pulse Resp BP Pulse Ox 98.1 F 99 18 105/77 99 10/07/18 15:38 10/07/18 15:38 10/07/18 15:38 10/07/18 15:38 10/07/18 15:38 General appearance: Present: cooperative, A&O X 3, no acute distress, answers questions appropriately Exam: a - Head Head exam: Present: atraumatic, normal inspection - Neck Neck exam general surgery: Present: supple - Respiratory Respiratory exam: Present: decreased breath sounds. Absent: rales, respiratory distress, rhonchi, wheezes - Cardiovascular Cardiovascular exam: Present: RRR, +S1, +S2. Absent: tachycardia - GI/Abdominal GI/Abdominal exam: Present: hyperactive bowel sounds, soft, tenderness (mild discomfort in lower abd). Absent: distended, rebound, rigid - Extremities Exam Extremities exam: Present: normal inspection. Absent: calf tenderness, pedal edema, tenderness - Back Exam Back exam: Absent: CVA tenderness (L), CVA tenderness (R) - Neurological Exam Neurological exam: Present: alert, oriented X3. Absent: facial droop - Psychiatric Psychiatric exam: Present: normal affect, normal mood - Skin Skin exam: Absent: rash Internal Med - H&P Results - Labs CBC & Chem 7: 10/07/18 09:58 10/07/18 09:58 Labs: Short CBC 10/07/18 Range/Units 09:58 WBC 13.7 H (4.3-11.1) K/mcL Hgb 12.4 L (12.9-16.9) g/dL Hct 36.6 L (37.5-50.1) % Plt Count 277 (140-400) K/mcL Neutrophils # 5.8 (1.6-8.9) K/mcL BMP 10/07/18 09:58 Sodium 131 L Potassium 4.8 Chloride 99 Carbon Dioxide 26 BUN 24 H Creatinine 0.85 Glucose 133 H Calcium 8.6 Liver Function 07/31/19 Range/Units 09:58 Total Bilirubin 0.5 (0.3-1.0) mg/dL Direct Bilirubin 0.1 (0.0-0.2) mg/dL AST 48 H (13-39) Units/L ALT 62 H (7-52) Units/L Alkaline Phosphatase 162 H (34-104) Units/L Albumin 3.4 L (3.5-5.7) g/dL - Assessment and Plan (1) Bright red blood per rectum Current Visit: Yes Status: Acute Assessment and plan: Place the pt into tele for observation His Hb dropped down to 12.4 from 14.1 in 06/26 Started on IV hydration close monitoring of H/H Ordered CT of Abd and Pelvis Cont symptomatic and supportive care Consulted GI for further eval (2) Lower abdominal pain Current Visit: Yes Status: Acute Assessment and plan: care as above (3) Hypertension Current Visit: No Status: Acute Assessment and plan: Resumed home meds Qualifiers: Hypertension type: essential hypertension Qualified Code(s): I10 - Essential (primary) hypertension (4) Alcohol abuse Current Visit: No Status: Chronic Assessment and plan: He did have alcohol abuse history in the past he denied any alcohol intake now his platelets are WNL cont close monitoring for now (5) DVT prophylaxis Current Visit: No Status: Chronic Assessment and plan: Placed him on SCD's - Time Spent With Patient Total time spent is greater than 50% in coordination of care (as documented) at patient's floor/unit and/or counseling patient:
[2018-10-07] MEDS ORDERED: *HR* LORazepam 2 MG/ML VIAL IVP PRN ×3 (16:41)
[2018-10-07 17:29] LABS: Hemoglobin 9.4 g/dL (12.9-16.9)
[2018-10-07] MEDS: Pantoprazole 40 MG VIAL IVP SCH (17:43)
[2018-10-07] MEDS: *HR* HYDROcodone/Acet 5/325 mg TABLET PO PRN (20:48)
[2018-10-08 00:15] LABS: Basophils % 0.1 %; Eosinophils % 0.2 %; Hematocrit 18.4 % (37.5-50.1); Hemoglobin 6.1 g/dL (12.9-16.9); Immature Granulocytes % 0.5 % (0-4); Lymphocytes # 10.9 K/mcL (0.6-4.6); Lymphocytes % 74.2 %; Mean Corpuscular HGB Conc 33.2 g/dL (31.6-35.5); Mean Corpuscular Hemoglobin 32.1 pg (28.0-33.3); Mean Corpuscular Volume 96.8 fL (83.0-100.0); Mean Platelet Volume 9.7 fL (9.4-12.4); Monocytes # 0.8 K/mcL (0.0-1.3); Monocytes % 5.4 %; Neutrophils # 2.9 K/mcL (1.6-8.9); Platelet Count 169 K/mcL (140-400); Segmented Neutrophils % 19.6 %; White Blood Count 14.7 K/mcL (4.3-11.1)
[2018-10-08] MEDS: 0.9 % Sodium Chloride 1,000 ML IVC SCH ×4 (01:05→22:03)
[2018-10-08] MEDS ORDERED: 0.9 % Sodium Chloride 250 ML ONE ×2 (01:15→09:39)
--- NOTE | 2018-10-08 01:36 | AcuteCare Surgery Consult Note ---
Date of Encounter: 10/08/18 Time of Encounter: 01:31 Assessment and Plan (1) GI bleed Current Visit: Yes Status: Acute 63M with melena with subsequent acute blood loss anemia and syncopal episode; INR wnl NPO transfuse as needed trend h/h will plan for endoscopies once patient is stable; will continue to follow Qualifiers: GI bleed type/associated pathology: unspecified gastrointestinal hemorrhage type Qualified Code(s): K92.2 - Gastrointestinal hemorrhage, unspecified History of Present Illness Consult date: 10/08/18 Reason for consult: other (melena) History of present illness: 63M pMH significant for OA who presents with new onset LGIB. He states it has been on going for the past 24hrs with associated light headedness and reported vagal/syncopal episode. His hbg has dropped considerably from ~9-->6. He is actively having bloody stools. No prior colonoscopies, no prior episodes of low er GI bleed, no unusual weight loss nor fatigue. No reports of any colon cancer in his family. Acute Care Surgery was consulted for management recommendations. Past Med Surg Social Fam HX - Past Medical History Medical history: arthritis, hypertension, other Additional medical history: back fractures Psychiatric history: no psych history - Past Surgical History Surgical History: herniorrhaphy, other Additional surgical history: hernia repair x 2 - Social History Smoking Status: Former smoker Smokeless Tobacco Status: Yes Alcohol use: occasionally, heavy Drug use: none - Family History Mother Family Member Ethnicity: Non- Living Status: Hx Family Cardiac Disorders: Yes (rheumatic fever causing decreased heart function) Hx Family Respiratory Disorders: No Hx Family Cancer: No Hx Family GI Disorders: No Hx Family Endocrine Disorder: No Hx Family Neuromuscular Disorders: No Hx Family Neurologic Disorders: No Hx Family HEENT Disorders: No Hx Family Autoimmune Disorders: No Father Adopted: No Family Member Ethnicity: Non- Living Status: Hx Family Cardiac Disorders: Yes (irregular heart beat causing pacemaker placement.) Hx Family Respiratory Disorders: No Hx Family Cancer: No Hx Family GI Disorders: No Hx Family Endocrine Disorder: No Hx Family Neuromuscular Disorders: No Hx Family Neurologic Disorders: No Hx Family HEENT Disorders: No Hx Family Autoimmune Disorders: No Medications and Allergies Metoprolol [Lopressor] 25 mg PO BID #75 tablet 10/29/14 [Rx] Aspirin [Lo-Dose Aspirin EC] 81 mg PO DAILY 04/10/17 [History] Losartan Potassium [Cozaar] 50 mg PO DAILY 04/10/17 [History] Nitroglycerin [Nitrostat] 0.4 mg SL Q5M PRN 04/10/17 [History] Baclofen 20 mg PO DAILY 10/07/18 [History] Allergy/AdvReac Type Severity Reaction Status Date / Time No Known Allergies Allergy Verified 10/07/18 09:56 Review of Systems All systems PM: 12 point ROS negative besides HPI findings General Surgery Exam Initial Vital Signs Temp Pulse Resp BP Pulse Ox 98.2 F 88 15 113/77 100 10/07/18 09:45 10/07/18 09:45 10/07/18 09:45 10/07/18 09:45 10/07/18 09:45 - General physical appearance well nourished, no distress - Eyes PERRL, normal ocular movement - ENT normocephalic - Neck trachea midline, no lymphadectomy - Respiratory normal expansion, normal respiratory effort - Cardiovascular Cardiovascular exam: Present: RRR - Abdomen Abdomen general surgery: Present: soft, non tender - Integumentary Integumentary general surgery: Present: warm and dry, no abnormal pigmentation - Neurologic Present: CN 2-12 grossly intact - Musculoskeletal Present: normal posture - Psychiatric Psychiatric general surgery: Present: A&Ox3 Exam Initial Vital Signs Temp Pulse Resp BP Pulse Ox 98.2 F 88 15 113/77 100 10/07/18 09:45 10/07/18 09:45 10/07/18 09:45 10/07/18 09:45 10/07/18 09:45 Results - Labs 10/08/18 00:01 10/07/18 09:58 Abnormal lab results WBC 14.7 K/mcL (4.3-11.1) H 10/08/18 00:01 RBC 1.90 M/mcL (4.19-5.50) L 10/08/18 00:01 Hgb 6.1 g/dL (12.9-16.9) L D 10/08/18 00:01 Hct 18.4 % (37.5-50.1) L 10/08/18 00:01 MPV 9.2 fL (9.4-12.4) L 10/07/18 09:58 Lymphocytes # 10.9 K/mcL (0.6-4.6) H 10/08/18 00:01 Sodium 131 mEq/L (136-145) L 10/07/18 09:58 BUN 24 mg/dL (8-23) H 10/07/18 09:58 BUN/Creatinine Ratio 28 (6-26) H 10/07/18 09:58 Glucose 133 mg/dL (70-105) H 10/07/18 09:58 POC Glucose 131 mg/dL (70-99) H 10/08/18 00:31 Calculated Osmolality 278 (280-300) L 10/07/18 09:58 AST 48 Units/L (13-39) H 10/07/18 09:58 ALT 62 Units/L (7-52) H 10/07/18 09:58 Alkaline Phosphatase 162 Units/L (34-104) H 10/07/18 09:58 Serum Total Protein 5.7 g/dL (6.4-8.9) L 10/07/18 09:58 Albumin 3.4 g/dL (3.5-5.7) L 10/07/18 09:58 Globulin 2.3 g/dL (2.4-3.5) L 10/07/18 09:58 Crossmatch See Detail 10/07/18 09:58 Diabetes panel 10/07/18 Range/Units 09:58 Sodium 131 L (136-145) mEq/L Potassium 4.8 (3.5-5.1) mEq/L Chloride 99 (98-107) mEq/L Carbon Dioxide 26 (23-29) mEq/L BUN 24 H (8-23) mg/dL Creatinine 0.85 (0.70-1.30) mg/dL Glucose 133 H (70-105) mg/dL Calcium 8.6 (8.6-10.3) mg/dL AST 48 H (13-39) Units/L ALT 62 H (7-52) Units/L Alkaline Phosphatase 162 H (34-104) Units/L Albumin 3.4 L (3.5-5.7) g/dL Calcium panel 10/07/18 Range/Units 09:58 Calcium 8.6 (8.6-10.3) mg/dL Albumin 3.4 L (3.5-5.7) g/dL Pituitary panel 10/07/18 Range/Units 09:58 Sodium 131 L (136-145) mEq/L Potassium 4.8 (3.5-5.1) mEq/L Chloride 99 (98-107) mEq/L Carbon Dioxide 26 (23-29) mEq/L BUN 24 H (8-23) mg/dL Creatinine 0.85 (0.70-1.30) mg/dL Glucose 133 H (70-105) mg/dL Calcium 8.6 (8.6-10.3) mg/dL Adrenal panel 10/07/18 Range/Units 09:58 Sodium 131 L (136-145) mEq/L Potassium 4.8 (3.5-5.1) mEq/L Chloride 99 (98-107) mEq/L Carbon Dioxide 26 (23-29) mEq/L BUN 24 H (8-23) mg/dL Creatinine 0.85 (0.70-1.30) mg/dL Glucose 133 H (70-105) mg/dL Calcium 8.6 (8.6-10.3) mg/dL Total Bilirubin 0.5 (0.3-1.0) mg/dL AST 48 H (13-39) Units/L ALT 62 H (7-52) Units/L Alkaline Phosphatase 162 H (34-104) Units/L Albumin 3.4 L (3.5-5.7) g/dL All other labs normal. Consult Discharge Plan - Plan Referrals: Santiago Camp DO [Primary Care Provider] -
[2018-10-08] MEDS: Pantoprazole 40 MG VIAL IVP SCH ×2 (05:20→18:23)
[2018-10-08 07:02] LABS: BUN/Creatinine Ratio 47 (6-26); Blood Urea Nitrogen 28 mg/dL (8-23); Calcium 6.8 mg/dL (8.6-10.3); Carbon Dioxide 20 mEq/L (23-29); Chloride 108 mEq/L (98-107); Chol/HDL Ratio 3.7 (0-4.9); Cholesterol 73 mg/dL (< 200); Glucose 118 mg/dL (70-105); HDL Cholesterol 20 mg/dL (40-59); LDL Cholesterol,Calculated 24 mg/dL (0-99); Osmolality,Calculated 287 (280-300); Potassium 4.4 mEq/L (3.5-5.1); Sodium 135 mEq/L (136-145); Triglycerides 147 mg/dL (< 150); eGFR For African Americans > 60 (> 60); eGFR For Non-African Americans > 60 (> 60)
--- NOTE | 2018-10-08 07:12 | Event Note ---
Date of Encounter: 10/08/18 Time of Encounter: 03:00 A rapid response was called in the patient because he passed out after having a very large volume dark tarry stool. He subsequently became hypotensive and tachycardic. Physical exam was notable for cold extremities and skin pallor. His mentation gradually improved with fluid resuscitation. 2U pRBC was emergently ordered and he was transferred to the ICU for management of hemorrhagic shock state. Surgery has been consulted for assistance in management. He will need serial H/H and abdominal exams. Will sign out to the day team. YOLI GREGORIO.
[2018-10-08 07:25] LABS: Hematocrit 22.1 % (37.5-50.1); Hemoglobin 7.6 g/dL (12.9-16.9); Mean Corpuscular HGB Conc 34.4 g/dL (31.6-35.5); Mean Corpuscular Hemoglobin 31.1 pg (28.0-33.3); Mean Corpuscular Volume 90.6 fL (83.0-100.0); Mean Platelet Volume 9.9 fL (9.4-12.4); Platelet Count 154 K/mcL (140-400); Red Blood Count 2.44 M/mcL (4.19-5.50); Red Cell Distribution Width 15.3 % (11.5-14.5)
[2018-10-08] MEDS ORDERED: Octreotide 50 MCG/ML INJ IVP ONE (08:37)
[2018-10-08] MEDS ORDERED: 0.9 % Sodium Chloride 1,000 ML ONE (08:43)
[2018-10-08] MEDS: *HR* HYDROcodone/Acet 5/325 mg TABLET PO PRN ×2 (08:45→18:23)
[2018-10-08] MEDS: Baclofen 10 MG TABLET PO SCH (08:45)
[2018-10-08] MEDS: Octreotide 400 MCG in 0.9 % Sodium Chloride 100 ML IVC SCH ×2 (09:35→23:58)
--- NOTE | 2018-10-08 12:56 | Acute Care Surgery Event Note ---
Date of Encounter: 10/08/18 Time of Encounter: 07:00 The patient was seen and evaluated at 7:30 AM and again at 11 AM. I ordered a stat bleeding scan at 7:30 this morning. As of 11 AM, the radioactive material was not yet available at [place]. The test will be performed as soon as possible to try and identify a source of bleeding. Continue resuscitation and transfusion as indicated. If no bleeding source is found on bleeding scan, we will proceed with bowel preparation and EGD colonoscopy tomorrow
[2018-10-08 14:01] LABS: Hematocrit 22.7 % (37.5-50.1); Hemoglobin 7.4 g/dL (12.9-16.9)
[2018-10-08] MEDS: Calcium Gluconate 1gm/50mL 1 GM/50 ML BAG IVPB SCH ×2 (14:30→16:07)
--- NOTE | 2018-10-08 16:40 | Internal Med Progress Note ---
<Natalie Morel L - Last Filed: 10/08/18 16:33> Hospitalist Progress Note - Encounter Date of Encounter: 10/08/18 Time of Encounter: 08:45 - Subjective Interval History: Patient is a 63-year-old male who presented with 1 day history of rectal bleeding weakness and headache. Overnight patient had a large bloody bowel movement after which he became hypotensive tachycardic and lost consciousness for approximately 2 minutes. He was transferred to ICU on to receive 2 units of packed red blood cells. Surgery was consulted. On exam this morning patient was in moderate distress secondary to abdominal pain. Patient stated he felt 7/10 abdominal pain right lower quadrant and LLQ. He stated it was cramping in nature. Patient then began to have a productive cough of clear mucus. Patient became diaphoretic, tachycardic and began to dry heave. LLQ and RLQ pain resolved upon asking the patient to valsalva. While speaking to , she states the morning coughs and dry heaving occur in the morning most every day for the l ast few weeks. - Exam Vitals: Temp Pulse Resp BP Pulse Ox 98.2 F 72 16 119/55 100 10/08/18 12:36 10/08/18 16:00 10/08/18 16:00 10/08/18 16:00 10/08/18 16:00 Exam: Constitutional: Patient appears to be in moderate distress secondary to abdominal pain, A&Ox3, engaged to conversation, speech is fluid, Head: Atraumatic, normocephalic Eyes: no scleral icterus, no conjunctival injection Neck: Trachea midline without deviation. Anterior neck is supple without swelling. Lungs: CTAB, no wheezing, rhonchi or rhales. Heart: intially SVT while coughing pt rate decreased after coughing, RRR, normal S1 and S2 , no S3 or S4 appreciated, no murmurs, gallops, rubs, or clicks. Abdomen: Abdomen is flat, soft to palpation, normal bowel sounds x4. No abdominal bruit auscultated. Non-distended, non-rigid, no organomegaly, no ascites appreciated. Initial cramping pain on palpation in LLQ and RLQ but resolved with valsalva manuever. no tenderness or guarding to palpation in all four quadrants, no rebound Extremities: Normal capillary refill without evidence of pedal edema, joint swelling or erythema. Pulses/motor intact in all 4 extremities. Psychiatric exam: Patient displays a normal affect and mood for the environment. No overt signs of hallucination. Integumentary: Patient appears pale, warm, diaphoretic, No rash, cyanosis, erythema, Neuro: no overt focal neurological deficits, answers questions appropriately - Assessment and Plan (1) Bright red blood per rectum Current Visit: Yes Status: Acute Assessment and Plan: Appreciate GI recommendations: - Continue nothing by mouth - Transfuse as needed - And tends to trend H and H - We will receive a bleeding scan - He will receive bowel prep EGD and colonoscopy tomorrow if no source of bleeding is found on the bleeding scan. (2) GI bleed Current Visit: Yes Status: Acute Assessment and Plan: As above (3) Excessive drinking of alcohol Current Visit: Yes Status: Chronic Assessment and Plan: Due to his history of alcohol abuse there is a concern for esophageal varices: - Octreotide 400mcg IVC 25mcg/hr - Time Spent with Patient Total time spent is greater than 50% in coordination of care (as documented) at patient's floor/unit and/or counseling patient: Internal Medicine: Result - Labs CBC & Chem 7: 10/08/18 13:41 10/08/18 06:28 Labs: Short CBC 10/07/18 10/08/18 10/08/18 Range/Units 16:39 00:01 07:08 WBC 14.7 H 13.0 H (4.3-11.1) K/mcL Hgb 9.4 L D 6.1 L D 7.6 L D (12.9-16.9) g/dL Hct 28.0 L 18.4 L 22.1 L (37.5-50.1) % Plt Count 169 154 (140-400) K/mcL Neutrophils # 2.9 (1.6-8.9) K/mcL 10/08/18 Range/Units 13:41 WBC (4.3-11.1) K/mcL Hgb 7.4 L (12.9-16.9) g/dL Hct 22.7 L (37.5-50.1) % Plt Count (140-400) K/mcL Neutrophils # (1.6-8.9) K/mcL BMP 10/08/18 06:28 Sodium 135 L Potassium 4.4 Chloride 108 H Carbon Dioxide 20 L BUN 28 H Creatinine 0.60 L Glucose 118 H Calcium 6.8 L - ABG Interpretation ABG results: PT/INR, D-dimer PT 11.0 Seconds (9.4-12.1) 10/07/18 09:58 - Impressions Impressions Abdomen/Pelvis CT 10/07/18 16:16 IMPRESSION: No acute noncontrast abnormality identified. D/ / Lorena Brice Cha, MD / Lorena Brice Cha, MD Interpreting Provider: Lorena Brice Cha, MD Bleed Scan Nuclear Medicine 10/08/18 09:15 IMPRESSION: No evidence of active GI bleeding during acquisition. RECOMMENDATIONS: If the patient shows hemodynamic signs of an active bleed in the next 20 hours, additional images can be acquired. D/ : / 10/08/2018 13:00:30 [facility]ron Acosta MD / [facility] Inter[facility]ting Provider: Aron Acosta MD Consult Discharge Plan - Plan Referrals: Santiago Camp DO [Primary Care Provider] - <Karlos Kc - Last Filed: 10/08/18 18:12> Hospitalist Progress Note - Encounter Date of Encounter: 10/08/18 - Exam Vitals: Temp Pulse Resp BP Pulse Ox 98.1 F 72 16 119/55 100 10/08/18 17:34 10/08/18 16:00 10/08/18 16:00 10/08/18 16:00 10/08/18 16:00 - Assessment and Plan (1) Hypertension Current Visit: No Status: Acute (2) DVT prophylaxis Current Visit: No Status: Chronic (3) Alcohol abuse Current Visit: No Status: Chronic (4) Lower abdominal pain Current Visit: Yes Status: Acute (5) Bright red blood per rectum Current Visit: Yes Status: Acute (6) Anemia Current Visit: Yes Status: Acute - Time Spent with Patient Total time spent is greater than 50% in coordination of care (as documented) at patient's floor/unit and/or counseling patient: Internal Medicine: Result - Labs CBC & Chem 7: 10/08/18 13:41 10/08/18 06:28 Labs: Short CBC 10/08/18 10/08/18 10/08/18 Range/Units 00:01 07:08 13:41 WBC 14.7 H 13.0 H (4.3-11.1) K/mcL Hgb 6.1 L D 7.6 L D 7.4 L (12.9-16.9) g/dL Hct 18.4 L 22.1 L 22.7 L (37.5-50.1) % Plt Count 169 154 (140-400) K/mcL Neutrophils # 2.9 (1.6-8.9) K/mcL BMP 10/08/18 06:28 Sodium 135 L Potassium 4.4 Chloride 108 H Carbon Dioxide 20 L BUN 28 H Creatinine 0.60 L Glucose 118 H Calcium 6.8 L - ABG Interpretation ABG results: PT/INR, D-dimer PT 11.0 Seconds (9.4-12.1) 10/07/18 09:58 - Impressions Impressions GI Bleed Scan Nuclear Medicine 10/08/18 09:15 IMPRESSION: No evidence of active GI bleeding during acquisition. RECOMMENDATIONS: If the patient shows hemodynamic signs of an active bleed in the next 20 hours, additional images can be acquired. D/ /08/2018 13:00:30 [facility] Inter[facility] Provider: Aron Acosta MD - Attending Attestation I examined this patient and my medical [facility]. I agree with the documented findings, disposition and treatment plan as described except to the extent set forth below. Mr Jimenez is currently admitted for acute GI bleed. He remains moderate to high risk due to potential for worsening clinical status. Mr Jimenez had coughing and tachycardia this AM. No fever. No hematemesis. Still with bloody bowel movements. No abd pain now. Exam: Alert. Mod distress due to cough. NC. Mucus membranes dry. Heart tachycardic and regular. No wheeze. Abd soft. No edema. Moves all extremities. No rash. Plan: Transfuse as needed. Surg to do endoscopy tomorrow. Monitor H/H. CIWA for ETOH. <Natalie Morel - Last Filed: 10/08/18 16:33> (2) GI bleed Qualifiers: GI bleed type/associated pathology: unspecified gastrointestinal hemorrhage type Qualified Code(s): K92.2 - Gastrointestinal hemorrhage, unspecified <Karlos Kc A - Last Filed: 10/08/18 18:12> (1) Hypertension Qualifiers: Hypertension type: essential hypertension Qualified Code(s): I10 - Essential (primary) hypertension (6) Anemia Qualifiers: Anemia type: other cause Other causes of anemia: acute posthemorrhagic Qualified Code(s): D62 - Acute posthemorrhagic anemia
--- NOTE | 2018-10-08 18:22 | Anesthesia Evaluation PreOp ---
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 Other Medical History: Other (GI bleed, mild compression of C6 vertebral Body, back fractures) Anesthesia History: No Prior Anesthetic Complications, Past Anesthesia (hernia repair x 2) Alcohol Use: occasionally, heavy Drug use: none Medications and Allergies Nitroglycerin [Nitrostat] 0.4 mg SL Q5M PRN 04/10/17 [History] Aspirin 81 mg PO QAM 10/08/18 [History] Losartan [Cozaar] 50 mg PO DAILY 10/08/18 [History] Metoprolol [Lopressor] 25 mg PO BID 10/08/18 [History] Allergy/AdvReac Type Severity Reaction Status Date / Time No Known Allergies Allergy Verified 10/08/18 11:27 - Meds/Allergy Pre-op Review Medications Reviewed: Yes Allergies Reviewed: Yes Beta Blockers on Current Med List: Yes If Beta Blockers taken, Date/Time (Last Dose taken): 10/08/2018 @ 22;04 Anesthesia Results - Labs 10/08/18 18:29 10/08/18 06:28 - Imaging EKG: report reviewed (SINUS BRADYCARDIA Electronically Signed On 04-15-2017 15:10:00 EST by Job Sánchez MD) Anesthesia Exam Vital Signs/O2 Sat, Most Current Temp Pulse Resp BP Pulse Ox 98.1 F 72 16 119/55 100 10/08/18 17:34 10/08/18 16:00 10/08/18 16:00 10/08/18 16:00 10/08/18 16:00 - HEENT Pupil (Motor): Pupils equal, EOMI Mallampati: III Teeth: Normal Oral Opening: Greater than 3 - 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
[2018-10-08 18:55] LABS: Hematocrit 21.8 % (37.5-50.1); Hemoglobin 7.4 g/dL (12.9-16.9)
[2018-10-09 01:34] LABS: Hematocrit 17.5 % (37.5-50.1)
[2018-10-09] MEDS ORDERED: 0.9 % Sodium Chloride 250 ML ONE (02:04)
[2018-10-09] MEDS: 0.9 % Sodium Chloride 1,000 ML IVC SCH ×4 (05:05→20:25)
[2018-10-09] MEDS: Pantoprazole 40 MG VIAL IVP SCH ×2 (05:07→18:25)
[2018-10-09] MEDS: Baclofen 10 MG TABLET PO SCH (09:24)
[2018-10-09 09:51] LABS: Basophils % 0.4 %; Eosinophils # 0.1 K/mcL (0.0-0.6); Eosinophils % 1.4 %; Hematocrit 23.5 % (37.5-50.1); Immature Granulocytes % 0.9 % (0-4); Lymphocytes # 5.8 K/mcL (0.6-4.6); Lymphocytes % 57.3 %; Mean Corpuscular Hemoglobin 30.7 pg (28.0-33.3); Mean Platelet Volume 10.4 fL (9.4-12.4); Monocytes # 0.7 K/mcL (0.0-1.3); Monocytes % 6.6 %; Neutrophils # 3.4 K/mcL (1.6-8.9); Platelet Count 138 K/mcL (140-400); Red Blood Count 2.61 M/mcL (4.19-5.50); Segmented Neutrophils % 33.4 %; White Blood Count 10.1 K/mcL (4.3-11.1)
[2018-10-09 10:05] LABS: BUN/Creatinine Ratio 17 (6-26); Blood Urea Nitrogen 11 mg/dL (8-23); Calcium 6.9 mg/dL (8.6-10.3); Carbon Dioxide 20 mEq/L (23-29); Chloride 113 mEq/L (98-107); Glucose 114 mg/dL (70-105); Osmolality,Calculated 278 (280-300); Potassium 4.5 mEq/L (3.5-5.1); Sodium 134 mEq/L (136-145); eGFR For African Americans > 60 (> 60); eGFR For Non-African Americans > 60 (> 60)
[2018-10-09] MEDS ORDERED: *HR* EPINEPHrine 1 MG/10 ML SYRINGE IVP ONE (14:36)
[2018-10-09 15:18] LABS: Hematocrit 22.3 % (37.5-50.1); Hemoglobin 7.8 g/dL (12.9-16.9)
--- NOTE | 2018-10-09 15:24 | Internal Med Progress Note ---
<Natalie Morel Terence - Last Filed: 10/09/18 15:20> Hospitalist Progress Note - Encounter Date of Encounter: 10/09/18 Time of Encounter: 10:00 - Subjective Interval History: Patient seen and examined at bedside without today. Patient states he is currently not in any abdominal pain. Although it comes and goes. He denies any episodes of chest pain this morning. Denies palpitations, nausea, headache, blurred vision, emesis. - Exam Vitals: Temp Pulse Resp BP Pulse Ox 97.8 F 62 16 124/64 98 10/09/18 13:55 10/09/18 13:00 10/09/18 09:22 10/09/18 13:00 10/09/18 13:00 Exam: Constitutional: Patient NAD, A&Ox3, engaged to conversation, speech is fluid, Head: Atraumatic, normocephalic Eyes: no scleral icterus, no conjunctival injection Neck: Trachea midline without deviation. Anterior neck is supple without swelling. Lungs: CTAB, no wheezing, rhonchi or rhales. Heart: RRR, normal S1 and S2 , no S3 or S4 appreciated, no murmurs, gallops, rubs, or clicks. Abdomen: Abdomen is flat, soft to palpation, normal bowel sounds x4. Non- distended, non-rigid, no organomegaly, no ascites appreciated, no rebound Extremities: Normal capillary refill without evidence of pedal edema, although b/l UE +2 edema noted, no erythema. Pulses/motor intact in all 4 extremities. Skin: Patient appears pale, warm, no diaphoresis, No rash, cyanosis, erythema, Neuro: no overt focal neurological deficits, answers questions appropriately - Assessment and Plan (1) Bright red blood per rectum Current Visit: Yes Status: Acute Assessment and Plan: Appreciate GI recommendations: - Continue nothing by mouth - Transfuse as needed - continue to trend H and H - He will receive bowel prep EGD and colonoscopy today. (2) GI bleed Current Visit: Yes Status: Acute Assessment and Plan: as above (3) Excessive drinking of alcohol Current Visit: Yes Status: Chronic Assessment and Plan: Due to his history of alcohol abuse there is a concern for esophageal varices: - Octreotide 400mcg IVC 25mcg/hr DVT Prophylaxis: heparin SQ - Time Spent with Patient Total time spent is greater than 50% in coordination of care (as documented) at patient's floor/unit and/or counseling patient: Internal Medicine: Result - Labs CBC & Chem 7: 10/09/18 09:21 10/09/18 09:21 Labs: Short CBC 10/08/18 10/09/18 10/09/18 Range/Units 18:29 01:22 09:21 WBC 10.1 (4.3-11.1) K/mcL Hgb 7.4 L 6.0 L* 8.0 L D (12.9-16.9) g/dL Hct 21.8 L 17.5 L 23.5 L (37.5-50.1) % Plt Count 138 L (140-400) K/mcL Neutrophils # 3.4 (1.6-8.9) K/mcL BMP 10/09/18 09:21 Sodium 134 L Potassium 4.5 Chloride 113 H Carbon Dioxide 20 L BUN 11 Creatinine 0.63 L Glucose 114 H Calcium 6.9 L - ABG Interpretation ABG results: PT/INR, D-dimer PT 11.0 Seconds (9.4-12.1) 10/07/18 09:58 - Impressions Impressions GI Bleed Scan Nuclear Medicine 10/08/18 09:15 IMPRESSION: No evidence of active GI bleeding during acquisition. RECOMMENDATIONS: If the patient shows hemodynamic signs of an active bleed in the next 20 hours, additional images can be acquired. D/ /08/2018 13:00:30 Aron Acosta MD / [facility] Interpreting Provider: Aron Acosta MD Consult Discharge Plan - Plan Referrals: Santiago Camp DO [Primary Care Provider] - <Karlos Kc - Last Filed: 10/09/18 16:21> Hospitalist Progress Note - Encounter Date of Encounter: 10/09/18 - Exam Vitals: Temp Pulse Resp BP Pulse Ox 97.8 F 66 16 128/63 96 10/09/18 13:55 10/09/18 15:55 10/09/18 09:22 10/09/18 15:55 10/09/18 15:55 - Assessment and Plan (1) Hypertension Current Visit: No Status: Acute (2) DVT prophylaxis Current Visit: No Status: Chronic (3) Alcohol abuse Current Visit: No Status: Chronic (4) Lower abdominal pain Current Visit: Yes Status: Acute (5) Bright red blood per rectum Current Visit: Yes Status: Acute (6) Anemia Current Visit: Yes Status: Acute - Time Spent with Patient Total time spent is greater than 50% in coordination of care (as documented) at patient's floor/unit and/or counseling patient: Internal Medicine: Result - Labs CBC & Chem 7: 10/09/18 14:59 10/09/18 09:21 Labs: Short CBC 10/08/18 10/09/18 10/09/18 Range/Units 18:29 01:22 09:21 WBC 10.1 (4.3-11.1) K/mcL Hgb 7.4 L 6.0 L* 8.0 L D (12.9-16.9) g/dL Hct 21.8 L 17.5 L 23.5 L (37.5-50.1) % Plt Count 138 L (140-400) K/mcL Neutrophils # 3.4 (1.6-8.9) K/mcL 10/09/18 Range/Units 14:59 WBC (4.3-11.1) K/mcL Hgb 7.8 L (12.9-16.9) g/dL Hct 22.3 L (37.5-50.1) % Plt Count (140-400) K/mcL Neutrophils # (1.6-8.9) K/mcL BMP 10/09/18 09:21 Sodium 134 L Potassium 4.5 Chloride 113 H Carbon Dioxide 20 L BUN 11 Creatinine 0.63 L Glucose 114 H Calcium 6.9 L - ABG Interpretation ABG results: PT/INR, D-dimer PT 11.0 Seconds (9.4-12.1) 10/07/18 09:58 - Impressions Impressions GI Bleed Scan Nuclear Medicine 10/08/18 09:15 IMPRESSION: No evidence of active GI bleeding during acquisition. RECOMMENDATIONS: If the patient shows hemodynamic signs of an active bleed in the next 20 hours, additional images can be acquired. D/ 10/08/2018 13:00:30 Aron Acosta MD / [facility] Interpreting Provider: Aron Acosta MD - Attending Attestation I examined this patient and my medical decision-making was reviewed with the Resident Physician on 10/09/18. I agree with the documented findings, disposition and treatment plan as described except to the extent set forth below. Mr Jimenez is currently admitted for acute GI bleed. He remains moderate to high risk due to potential for worsening clinical status. Mr Jimenez had more blood during the night. No fever or chills. No CP. Exam: Alert. Comfortable now. NC. EOMI. Mucus membranes dry. Heart reg and not tachy. No wheeze. Abd soft and nontender. No edema. Moves all extremities. No rash. Plan: Endoscopy today. Continue PPI. Stop Octreotide if no varices. <Natalie Morel - Last Filed: 10/09/18 15:20> (2) GI bleed Qualifiers: GI bleed type/associated pathology: unspecified gastrointestinal hemorrhage type Qualified Code(s): K92.2 - Gastrointestinal hemorrhage, unspecified <Karlos Kc - Last Filed: 10/09/18 16:21> (1) Hypertension Qualifiers: Hypertension type: essential hypertension Qualified Code(s): I10 - Essential (primary) hypertension (6) Anemia Qualifiers: Anemia type: other cause Other causes of anemia: acute posthemorrhagic Qualified Code(s): D62 - Acute posthemorrhagic anemia
--- NOTE | 2018-10-09 15:31 | AcuteCareSurgery Progress Note ---
Date of Encounter: 10/09/18 Time of Encounter: 15:28 - Assessment and Plan (1) GI bleed Current Visit: Yes Status: Acute 63M admitted for lower GI bleed now s/p EGD, colonoscopy where a bleeding duodenal ulcer was found; there was an adherent clot with oozing around it; 1.5cc of epinephrine was injected and bleeding was stopped; biopsies and vikram test taken ice chips IVF ppi gtt carafate await path results trend h/h, transfuse as needed octeotide per ICU/ will plan for possible repeat EGD on 10/11 Qualifiers: GI bleed type/associated pathology: unspecified gastrointestinal hemorrhage type Qualified Code(s): K92.2 - Gastrointestinal hemorrhage, unspecified Subjective Patient reports: no new complaints, blood in stool, afebrile, other (s/p EGD, colonoscopy - bleeding duodenal ulcer) Objective Vital Signs - Last 8 Hours Temp Pulse Resp BP Pulse Ox 10/09/18 13:55 97.8 F 10/09/18 13:00 62 124/64 98 10/09/18 12:00 58 121/60 98 10/09/18 11:00 59 118/51 98 10/09/18 10:00 64 126/56 98 10/09/18 09:22 65 16 134/72 98 10/09/18 08:48 97.8 F 10/09/18 08:00 61 106/50 98 Intake and Output 10/08/18 10/09/18 10/09/18 23:59 07:59 15:59 Intake Total 2154 / 8117 5411 / 6411 1000 / 6411 Output Total 200 / 2100 1650 / 2200 550 / 2200 Balance 1954 / 6017 3761 / 4211 450 / 4211 Intake: IV Fluids 2154 / 3404 1000 / 1999 1000 / 2000 0.9 % Sodium Chloride 1,000 ML 1999 / 1999 1000 / 1999 1000 / 2000 @ 150 mls/hr IVC .Q6H40M [facility] Rx #:[id number] SandoSTATIN 400 MCG In 0.9 % 104 / 104 Sodium Chloride 100 ML @ 25 MCG /HR 6.5 mls/hr IVC .Q16H [facility] Rx #:[id number] Calcium Gluconate 1gm/50mL 1 gm 50 / 100 In 50 ml @ 100 mls/hr IVPB Q30MIN [facility] Rx#:[id number] Oral 3785 / 3785 Blood Product 626 / 626 Rbcs Leuko Poor As-1 Unit 276 / 276 [id number] Rbcs Leuko Poor As-1 Unit 350 / 350 [id number] Output: Urine 0 / 900 650 / 1000 350 / 1000 Stool 100 / 100 Rectal Tube 200 / 700 1000 / 1100 100 / 1100 Other: Stool Consistency liquid Stool Color Dark Red Blood Dark Red Blood Weight 82 kg Patient Weight 10/09/18 23:59 Weight 82 kg - General physical appearance no distress - Respiratory normal expansion, normal respiratory effort - Cardiovascular Cardiovascular exam: Present: RRR - Abdomen Abdomen: Present: soft, non tender - Neurologic CN 2-12 grossly intact - Psychiatric oriented to time, oriented to person, oriented to place - Labs 10/09/18 14:59 10/09/18 09:21 Diabetes panel 10/09/18 Range/Units 09:21 Sodium 134 L (136-145) mEq/L Potassium 4.5 (3.5-5.1) mEq/L Chloride 113 H (98-107) mEq/L Carbon Dioxide 20 L (23-29) mEq/L BUN 11 (8-23) mg/dL Creatinine 0.63 L (0.70-1.30) mg/dL Glucose 114 H (70-105) mg/dL Calcium 6.9 L (8.6-10.3) mg/dL Calcium panel 10/09/18 Range/Units 09:21 Calcium 6.9 L (8.6-10.3) mg/dL Pituitary panel 10/09/18 Range/Units 09:21 Sodium 134 L (136-145) mEq/L Potassium 4.5 (3.5-5.1) mEq/L Chloride 113 H (98-107) mEq/L Carbon Dioxide 20 L (23-29) mEq/L BUN 11 (8-23) mg/dL Creatinine 0.63 L (0.70-1.30) mg/dL Glucose 114 H (70-105) mg/dL Calcium 6.9 L (8.6-10.3) mg/dL Adrenal panel 10/09/18 Range/Units 09:21 Sodium 134 L (136-145) mEq/L Potassium 4.5 (3.5-5.1) mEq/L Chloride 113 H (98-107) mEq/L Carbon Dioxide 20 L (23-29) mEq/L BUN 11 (8-23) mg/dL Creatinine 0.63 L (0.70-1.30) mg/dL Glucose 114 H (70-105) mg/dL Calcium 6.9 L (8.6-10.3) mg/dL Consult Discharge Plan - Plan Referrals: Santiago Camp DO [Primary Care Provider] -
[2018-10-09] MEDS: Octreotide 400 MCG in 0.9 % Sodium Chloride 100 ML IVC SCH (16:36)
[2018-10-09] MEDS ORDERED: *HR* Propofol 500 MG/50 ML BOTTLE IVC ONE (16:54)
[2018-10-09] MEDS ORDERED: *HR* Propofol 200 MG/20 ML VIAL IVP ONE (16:54)
[2018-10-09] MEDS ORDERED: Lidocaine 2% Syringe 100 MG/5 ML IV ONE (16:54)
[2018-10-09] MEDS ORDERED: Nitroglycerin 0.4 MG TAB.SUBL SL PRN (17:18)
[2018-10-09] MEDS ORDERED: Ondansetron 4 MG/2 ML VIAL IVP PRN (17:18)
[2018-10-09] MEDS ORDERED: Acetaminophen 325 MG TABLET PO PRN (17:18)
[2018-10-09] MEDS ORDERED: *HR* LORazepam 2 MG/ML VIAL IVP PRN ×3 (17:18)
[2018-10-09] MEDS ORDERED: Naloxone 0.4 MG/ML INJ IVP PRN (17:18)
[2018-10-09] MEDS ORDERED: *HR* HYDROcodone/Acet 5/325 mg TABLET PO PRN (17:18)
[2018-10-10] MEDS: 0.9 % Sodium Chloride 1,000 ML IVC SCH (04:25)
[2018-10-10] MEDS: Pantoprazole 40 MG VIAL IVP SCH ×2 (04:25→17:14)
[2018-10-10 06:51] LABS: Basophils % 0.2 %; Eosinophils # 0.1 K/mcL (0.0-0.6); Eosinophils % 1.2 %; Hematocrit 19.7 % (37.5-50.1); Hemoglobin 6.8 g/dL (12.9-16.9); Immature Granulocytes % 0.5 % (0-4); Lymphocytes # 5.2 K/mcL (0.6-4.6); Lymphocytes % 62.6 %; Mean Corpuscular HGB Conc 34.5 g/dL (31.6-35.5); Mean Corpuscular Hemoglobin 31.5 pg (28.0-33.3); Mean Corpuscular Volume 91.2 fL (83.0-100.0); Mean Platelet Volume 10.3 fL (9.4-12.4); Monocytes # 0.5 K/mcL (0.0-1.3); Neutrophils # 2.4 K/mcL (1.6-8.9); Platelet Count 150 K/mcL (140-400); Red Blood Count 2.16 M/mcL (4.19-5.50); Red Cell Distribution Width 15.4 % (11.5-14.5); Segmented Neutrophils % 29.5 %; White Blood Count 8.3 K/mcL (4.3-11.1)
[2018-10-10 07:02] LABS: BUN/Creatinine Ratio 10 (6-26); Blood Urea Nitrogen 7 mg/dL (8-23); Calcium 6.9 mg/dL (8.6-10.3); Carbon Dioxide 20 mEq/L (23-29); Chloride 111 mEq/L (98-107); Glucose 97 mg/dL (70-105); Osmolality,Calculated 276 (280-300); Potassium 3.9 mEq/L (3.5-5.1); Sodium 134 mEq/L (136-145); eGFR For African Americans > 60 (> 60); eGFR For Non-African Americans > 60 (> 60)
--- NOTE | 2018-10-10 08:18 | Internal Med Progress Note ---
Hospitalist Progress Note - Encounter Date of Encounter: 10/10/18 Time of Encounter: 08:16 - Subjective Interval History: Mr Jimenez is currently admitted for acute GI bleed and anemia. He remains high risk due to potential for worsening clinical status. Mr Jimenez feels OK today. Had ulcer treated yesterday. No further bloody stools. H/H drifting down today. - Exam Vitals: Temp Pulse Resp BP Pulse Ox 98.3 F 64 20 113/61 97 10/10/18 08:09 10/10/18 07:00 10/10/18 07:00 10/10/18 07:00 10/10/18 07:00 Exam: General: Alert and oriented. Comfortable at this time. Resting in bed. Skin: Normal color, H: Normocephalic. EENT: EOMI, Mucus membranes moist. Cardiovascular: Normal S1 & S2, no murmurs Pulse regular. Not tachycardic Lungs: Normal breath sounds, no wheezes or crackles. Abdomen: Soft, non-tender, Normal bowel sounds. Extremities: No deformity, no edema or tenderness, Neurological: Normal cognition and motor skills. Pulses: radial pulses normal +2. Rest of the physical exam is non contributory - Assessment and Plan (1) Bright red blood per rectum Current Visit: Yes Status: Acute Assessment and Plan: Pt presented with acute GI bleed requiring PRBC transfusion. He is s/p EGD with treatment of oozing duodenal ulcer. No further bleeding at this time. H/H drifted down again. Will keep on clear liquids at this time. (2) Acute duodenal ulcer with bleeding Current Visit: Yes Status: Acute Assessment and Plan: Pt presented with GI bleeding and found to have doudenal ulcer yesterday. Treated with epinephrine injection. Monitoring for recurrent bleeding and anemia. Plan is for repeat endoscopy tomorrow. (3) Anemia Current Visit: Yes Status: Acute Assessment and Plan: Anemia related to GI blood loss. This AM Hemoglobin under 7 again. Transfused 2 more units PRBCs. Recheck hemoglobin later and in AM. (4) Hypertension Current Visit: No Status: Chronic Assessment and Plan: Controlled at this time. Continues on Metoprolol. (5) DVT prophylaxis Current Visit: No Status: Chronic (6) Alcohol abuse Current Visit: No Status: Chronic Assessment and Plan: No overt signs of withdrawal. CIWA protocol ordered. - Time Spent with Patient Total time spent is greater than 50% in coordination of care (as documented) at patient's floor/unit and/or counseling patient: Internal Medicine: Result - Labs CBC & Chem 7: 10/10/18 09:35 10/10/18 06:12 Labs: Short CBC 10/09/18 10/09/18 10/09/18 Range/Units 09:21 14:59 22:25 WBC 10.1 (4.3-11.1) K/mcL Hgb 8.0 L D 7.8 L 7.0 L (12.9-16.9) g/dL Hct 23.5 L 22.3 L 20.0 L (37.5-50.1) % Plt Count 138 L (140-400) K/mcL Neutrophils # 3.4 (1.6-8.9) K/mcL 10/10/18 Range/Units 06:12 WBC 8.3 (4.3-11.1) K/mcL Hgb 6.8 L (12.9-16.9) g/dL Hct 19.7 L (37.5-50.1) % Plt Count 150 (140-400) K/mcL Neutrophils # 2.4 (1.6-8.9) K/mcL BMP 10/09/18 10/10/18 09:21 06:12 Sodium 134 L 134 L Potassium 4.5 3.9 Chloride 113 H 111 H Carbon Dioxide 20 L 20 L BUN 11 7 L Creatinine 0.63 L 0.70 Glucose 114 H 97 Calcium 6.9 L 6.9 L - ABG Interpretation ABG results: PT/INR, D-dimer PT 11.0 Seconds (9.4-12.1) 10/07/18 09:58 Consult Discharge Plan - Plan Referrals: Santiago Camp DO [Primary Care Provider] - (3) Anemia Qualifiers: Anemia type: other cause Other causes of anemia: acute posthemorrhagic Qualified Code(s): D62 - Acute posthemorrhagic anemia (4) Hypertension Qualifiers: Hypertension type: essential hypertension Qualified Code(s): I10 - Essential (primary) hypertension
[2018-10-10] MEDS: Baclofen 10 MG TABLET PO SCH (08:58)
[2018-10-10 09:49] LABS: Hematocrit 22.2 % (37.5-50.1); Hemoglobin 7.5 g/dL (12.9-16.9)
--- NOTE | 2018-10-10 12:08 | AcuteCareSurgery Progress Note ---
Date of Encounter: 10/10/18 Time of Encounter: 12:07 - Assessment and Plan (1) GI bleed Current Visit: Yes Status: Acute 63M admitted for lower GI bleed now s/p EGD, colonoscopy where a bleeding duodenal ulcer was found; there was an adherent clot with oozing around it; 1.5cc of epinephrine was injected and bleeding was stopped; biopsies and vikram test taken h/h: continue to trend; currently increasing prior to transfusion if patient responds and does not continue to decline drastically, then can advance diet will plan for repeat EGD on 10/11 to assess for bleeding NPO at midnight will cont to follow Qualifiers: GI bleed type/associated pathology: unspecified gastrointestinal hemorrhage type Qualified Code(s): K92.2 - Gastrointestinal hemorrhage, unspecified Subjective Patient reports: no new complaints, feels better, afebrile, other (no further reports of dark or bloody stools) Objective Vital Signs - Last 8 Hours Temp Pulse Resp BP Pulse Ox 10/10/18 10:09 98.1 F 66 20 104/56 97 10/10/18 10:00 63 20 103/53 97 10/10/18 09:55 98.0 F 62 20 103/53 97 10/10/18 09:00 78 20 128/59 91 10/10/18 08:09 98.3 F 10/10/18 08:00 68 10/10/18 07:00 64 20 113/61 97 10/10/18 05:00 61 18 102/45 92 Intake and Output 10/09/18 10/10/18 10/10/18 23:59 07:59 15:59 Intake Total 6.4 / 6517.4 1000 / 2700 1700 / 2700 Output Total 525 / 3125 500 / 500 0 / 500 Balance -518.6 / 3392.4 500 / 2200 1700 / 2200 Intake: IV Fluids 6.4 / 2106.4 1000 / 2000 1000 / 2000 0.9 % Sodium Chloride 1,000 ML 1000 / 1999 1000 / 2000 @ 150 mls/hr IVC .Q6H40M [facility] Rx #:[id number] SandoSTATIN 400 MCG In 0.9 % 6.4 / 106.4 Sodium Chloride 100 ML @ 25 MCG /HR 6.5 mls/hr IVC .Q16H [facility] Rx #:[id number] Oral 700 / 700 Blood Product 0 / 0 Rbcs Leuko Poor As-1 Unit 0 / 0 [id number] Output: Urine 525 / 1525 500 / 500 0 / 500 Other: Meal Breakfast Weight 83.4 kg Patient Weight 10/10/18 23:59 Weight 83.4 kg - General physical appearance no distress - Respiratory normal expansion, normal respiratory effort - Cardiovascular Cardiovascular exam: Present: RRR - Abdomen Abdomen: Present: soft, non tender - Integumentary no rash - Neurologic CN 2-12 grossly intact - Psychiatric oriented to time, oriented to person, oriented to place - Labs 10/10/18 09:35 10/10/18 06:12 Diabetes panel 10/10/18 Range/Units 06:12 Sodium 134 L (136-145) mEq/L Potassium 3.9 (3.5-5.1) mEq/L Chloride 111 H (98-107) mEq/L Carbon Dioxide 20 L (23-29) mEq/L BUN 7 L (8-23) mg/dL Creatinine 0.70 (0.70-1.30) mg/dL Glucose 97 (70-105) mg/dL Calcium 6.9 L (8.6-10.3) mg/dL Calcium panel 10/10/18 Range/Units 06:12 Calcium 6.9 L (8.6-10.3) mg/dL Pituitary panel 10/10/18 Range/Units 06:12 Sodium 134 L (136-145) mEq/L Potassium 3.9 (3.5-5.1) mEq/L Chloride 111 H (98-107) mEq/L Carbon Dioxide 20 L (23-29) mEq/L BUN 7 L (8-23) mg/dL Creatinine 0.70 (0.70-1.30) mg/dL Glucose 97 (70-105) mg/dL Calcium 6.9 L (8.6-10.3) mg/dL Adrenal panel 10/10/18 Range/Units 06:12 Sodium 134 L (136-145) mEq/L Potassium 3.9 (3.5-5.1) mEq/L Chloride 111 H (98-107) mEq/L Carbon Dioxide 20 L (23-29) mEq/L BUN 7 L (8-23) mg/dL Creatinine 0.70 (0.70-1.30) mg/dL Glucose 97 (70-105) mg/dL Calcium 6.9 L (8.6-10.3) mg/dL Consult Discharge Plan - Plan Referrals: Santiago Camp DO [Primary Care Provider] -
[2018-10-10 16:15] LABS: Hemoglobin 10.2 g/dL (12.9-16.9)
[2018-10-10 16:16] LABS: VBG Ionized Calcium 1.14 mmol/L (1.15-1.35)
[2018-10-11] MEDS: Pantoprazole 40 MG VIAL IVP SCH ×2 (05:51→18:03)
[2018-10-11 07:39] LABS: Hemoglobin 9.1 g/dL (12.9-16.9); Mean Corpuscular HGB Conc 32.5 g/dL (31.6-35.5); Mean Corpuscular Hemoglobin 31.3 pg (28.0-33.3); Mean Corpuscular Volume 96.2 fL (83.0-100.0); Mean Platelet Volume 9.6 fL (9.4-12.4); Platelet Count 179 K/mcL (140-400); Red Blood Count 2.91 M/mcL (4.19-5.50); Red Cell Distribution Width 15.6 % (11.5-14.5)
[2018-10-11 07:55] LABS: Alanine Aminotransferase 20 Units/L (7-52); Albumin 2.1 g/dL (3.5-5.7); Albumin/Globulin Ratio 1.5 (1.1-2.2); Alkaline Phosphatase 54 Units/L (34-104); Aspartate Amino Transferase 20 Units/L (13-39); BUN/Creatinine Ratio 8 (6-26); Bilirubin,Total 0.5 mg/dL (0.3-1.0); Blood Urea Nitrogen 6 mg/dL (8-23); Calcium 7.3 mg/dL (8.6-10.3); Carbon Dioxide 21 mEq/L (23-29); Chloride 107 mEq/L (98-107); Globulin 1.4 g/dL (2.4-3.5); Glucose 90 mg/dL (70-105); Magnesium 1.7 mg/dL (1.6-2.6); Osmolality,Calculated 279 (280-300); Phosphorous 3.4 mg/dL (2.7-4.5); Potassium 3.6 mEq/L (3.5-5.1); Sodium 136 mEq/L (136-145); Total Protein 3.5 g/dL (6.4-8.9); eGFR For African Americans > 60 (> 60); eGFR For Non-African Americans > 60 (> 60)
[2018-10-11] MEDS: Baclofen 10 MG TABLET PO SCH (08:21)
--- NOTE | 2018-10-11 09:35 | Internal Med Progress Note ---
Hospitalist Progress Note - Encounter Date of Encounter: 10/11/18 Time of Encounter: 09:00 - Subjective Interval History: Mr Jimenez is currently admitted for acute GI bleed. He remains moderate to high risk due to potential for worsening clinical status and potential for recurrent bleeding. Mr Jimenez is up in chair. He is feeling OK and is hungry. H/H down slightly again today. No fever or chills. No further bleeding. No CP or SOB. No abdominal pain. To have repeat EGD today. - Exam Vitals: Temp Pulse Resp BP Pulse Ox 98.3 F 68 18 134/71 95 10/11/18 07:07 10/11/18 07:19 10/11/18 07:07 10/11/18 07:07 10/11/18 07:07 Exam: General: Alert and oriented. Sitting up in chair. Comfortable. Skin: Normal color. No rash. H: Normocephalic. EENT: EOMI, Mucus membranes moist. No adenopathy. Cardiovascular: Normal S1 & S2, no murmurs No tachycardia. Regular pulse. Lungs: Normal breath sounds. No wheeze, rhonchi or ralees. Abdomen: Soft, non-tender, Normal bowel sounds. Extremities: No deformity, no edema or tenderness, Neurological: Normal cognition and motor skills. Moves all extremities. Pulses: radial pulses normal +2. Rest of the physical exam is non contributory - Assessment and Plan (1) Bright red blood per rectum Current Visit: Yes Status: Acute Assessment and Plan: Pt presented with acute GI bleed requiring PRBC transfusion. He is s/p EGD with treatment of oozing duodenal ulcer. No further bleeding noted - received 2 units PRBCs yesterday. H/H down slightly again today. To have repeat EGD today. (2) Acute duodenal ulcer with bleeding Current Visit: Yes Status: Acute Assessment and Plan: Pt presented with GI bleeding and found to have doudenal ulcer. Treated with epinephrine injection. No evidence of bleeding but H/H decreased. Repeat EGD planned for today. (3) Anemia Current Visit: Yes Status: Acute Assessment and Plan: Anemia related to GI blood loss. Had good response to transfusion yesterday but slightly lower again today. No need for blood transfusion at this time. (4) Hypertension Current Visit: No Status: Chronic Assessment and Plan: Controlled at this time. Continue Metoprolol and Losartan. (5) DVT prophylaxis Current Visit: No Status: Chronic Assessment and Plan: SCDs. No heparin due to bleeding. (6) Alcohol abuse Current Visit: No Status: Chronic Assessment and Plan: No overt signs of withdrawal. Continues on CIWA protocol. - Time Spent with Patient Total time spent is greater than 50% in coordination of care (as documented) at patient's floor/unit and/or counseling patient: Internal Medicine: Result - Labs CBC & Chem 7: 10/11/18 06:14 10/11/18 06:14 Labs: Short CBC 10/10/18 10/10/18 10/11/18 Range/Units 09:35 16:02 06:14 WBC 7.0 (4.3-11.1) K/mcL Hgb 7.5 L 10.2 L D 9.1 L (12.9-16.9) g/dL Hct 22.2 L 30.0 L 28.0 L (37.5-50.1) % Plt Count 179 (140-400) K/mcL BMP 10/11/18 06:14 Sodium 136 Potassium 3.6 Chloride 107 Carbon Dioxide 21 L BUN 6 L Creatinine 0.75 Glucose 90 Calcium 7.3 L Liver Function 10/11/18 Range/Units 06:14 Total Bilirubin 0.5 (0.3-1.0) mg/dL AST 20 (13-39) Units/L ALT 20 (7-52) Units/L Alkaline Phosphatase 54 (34-104) Units/L Albumin 2.1 L (3.5-5.7) g/dL - ABG Interpretation ABG results: PT/INR, D-dimer PT 11.0 Seconds (9.4-12.1) 10/07/18 09:58 Consult Discharge Plan - Plan Referrals: Santiago Camp DO [Primary Care Provider] - (3) Anemia Qualifiers: Anemia type: other cause Other causes of anemia: acute posthemorrhagic Qualified Code(s): D62 - Acute posthemorrhagic anemia (4) Hypertension Qualifiers: Hypertension type: essential hypertension Qualified Code(s): I10 - Essential (primary) hypertension
[2018-10-11] MEDS ORDERED: Lidocaine -MPF 2% 2 ML VIAL ONE (10:01)
[2018-10-11] MEDS ORDERED: *HR* Propofol 200 MG/20 ML VIAL IVP ONE (10:02)
--- NOTE | 2018-10-11 12:54 | Anesthesia Evaluation Post Op ---
Date of Encounter: 10/11/18 Time of Encounter: 11:42 - Vital Signs Vital Signs: Vital Signs/O2 Sat/Glucose, Most Current Pulse Resp BP Pulse Ox 10/11/18 11:00 57 18 126/72 98 - Lungs Lungs: Clear Ascult./Percussion - Airway Airway: Non-obstructed - Cardiovascular Regular Rate, Baseline Rhythm - Mental Status Mental Status: Alert & Oriented, Answers Appropriately - Pain Pain Scale: 0 Pain Scale used: Numeric (1 - 10) - Nausea Vomiting Nausea Vomiting: Not Present - Hydration Hydration: NPO, Has not voided - Discharge PostOp Status: Transfer Patient to floor Anes Supervising Prov Stmt: Pt VSS and has met criteria for discharge to floor. - MD Broderick
--- NOTE | 2018-10-11 13:09 | AcuteCareSurgery Progress Note ---
Date of Encounter: 10/11/18 Time of Encounter: 13:07 - Assessment and Plan (1) GI bleed Current Visit: Yes Status: Acute 63M admitted for lower GI bleed now s/p repaet EGD; no evidence of bleeding; ulcer still present; no other ulcers appreciated diet as tolerated PPI, carafate f/u pathology to assess for h. pylori h/h in AM will reassess in AM Qualifiers: GI bleed type/associated pathology: unspecified gastrointestinal hemorrhage type Qualified Code(s): K92.2 - Gastrointestinal hemorrhage, unspecified Subjective Patient reports: no new complaints, feels better, afebrile Objective Vital Signs - Last 8 Hours Temp Pulse Resp BP Pulse Ox 10/11/18 11:00 57 18 126/72 98 10/11/18 07:19 68 10/11/18 07:07 98.3 F 64 18 134/71 95 Intake and Output 10/10/18 10/11/18 10/11/18 23:59 07:59 15:59 Intake Total 700 / 4050 Output Total 1380 / 2480 880 / 880 Balance -680 / 1570 -880 / -880 Intake: Oral 700 / 1400 Output: Urine 1380 / 2480 880 / 880 Other: Meal Dinner # Voids 1 - General physical appearance no distress - Respiratory normal expansion, normal respiratory effort - Cardiovascular Cardiovascular exam: Present: RRR - Abdomen Abdomen: Present: soft, non tender - Neurologic CN 2-12 grossly intact - Psychiatric oriented to time, oriented to person, oriented to place - Labs 10/11/18 06:14 10/11/18 06:14 Diabetes panel 10/11/18 Range/Units 06:14 Sodium 136 (136-145) mEq/L Potassium 3.6 (3.5-5.1) mEq/L Chloride 107 (98-107) mEq/L Carbon Dioxide 21 L (23-29) mEq/L BUN 6 L (8-23) mg/dL Creatinine 0.75 (0.70-1.30) mg/dL Glucose 90 (70-105) mg/dL Calcium 7.3 L (8.6-10.3) mg/dL AST 20 (13-39) Units/L ALT 20 (7-52) Units/L Alkaline Phosphatase 54 (34-104) Units/L Albumin 2.1 L (3.5-5.7) g/dL Calcium panel 10/11/18 Range/Units 06:14 Calcium 7.3 L (8.6-10.3) mg/dL Phosphorus 3.4 (2.7-4.5) mg/dL Albumin 2.1 L (3.5-5.7) g/dL Pituitary panel 10/11/18 Range/Units 06:14 Sodium 136 (136-145) mEq/L Potassium 3.6 (3.5-5.1) mEq/L Chloride 107 (98-107) mEq/L Carbon Dioxide 21 L (23-29) mEq/L BUN 6 L (8-23) mg/dL Creatinine 0.75 (0.70-1.30) mg/dL Glucose 90 (70-105) mg/dL Calcium 7.3 L (8.6-10.3) mg/dL Adrenal panel 10/11/18 Range/Units 06:14 Sodium 136 (136-145) mEq/L Potassium 3.6 (3.5-5.1) mEq/L Chloride 107 (98-107) mEq/L Carbon Dioxide 21 L (23-29) mEq/L BUN 6 L (8-23) mg/dL Creatinine 0.75 (0.70-1.30) mg/dL Glucose 90 (70-105) mg/dL Calcium 7.3 L (8.6-10.3) mg/dL Total Bilirubin 0.5 (0.3-1.0) mg/dL AST 20 (13-39) Units/L ALT 20 (7-52) Units/L Alkaline Phosphatase 54 (34-104) Units/L Albumin 2.1 L (3.5-5.7) g/dL Consult Discharge Plan - Plan Referrals: Santiago Camp DO [Primary Care Provider] -
[2018-10-11] MEDS: Sucralfate 1 GM TABLET PO SCH ×2 (16:15→22:29)
[2018-10-12 04:27] LABS: Hematocrit 27.3 % (37.5-50.1); Hemoglobin 8.9 g/dL (12.9-16.9); Mean Corpuscular HGB Conc 32.6 g/dL (31.6-35.5); Mean Corpuscular Volume 98.2 fL (83.0-100.0); Mean Platelet Volume 9.8 fL (9.4-12.4); Platelet Count 179 K/mcL (140-400); Red Blood Count 2.78 M/mcL (4.19-5.50); Red Cell Distribution Width 16.2 % (11.5-14.5); White Blood Count 6.4 K/mcL (4.3-11.1)
[2018-10-12 04:44] LABS: BUN/Creatinine Ratio 10 (6-26); Blood Urea Nitrogen 8 mg/dL (8-23); Calcium 7.3 mg/dL (8.6-10.3); Carbon Dioxide 27 mEq/L (23-29); Chloride 107 mEq/L (98-107); Glucose 112 mg/dL (70-105); Osmolality,Calculated 283 (280-300); Potassium 3.7 mEq/L (3.5-5.1); Sodium 137 mEq/L (136-145); eGFR For African Americans > 60 (> 60); eGFR For Non-African Americans > 60 (> 60)
[2018-10-12] MEDS: Pantoprazole 40 MG VIAL IVP SCH (06:26)
--- NOTE | 2018-10-12 08:53 | AcuteCareSurgery Progress Note ---
Date of Encounter: 10/12/18 Time of Encounter: 08:00 - Assessment and Plan (1) Acute duodenal ulcer with bleeding Current Visit: Yes Status: Acute Hemoglobin is stable. The patient is tolerating regular diet. We do recommend continuing therapy with proton pump inhibitor as well as abstinence from alcohol. Surgery will sign off Subjective Narrative: The patient is seen and evaluated on morning rounds with the acute care surgery team. He has no nausea or vomiting. He is tolerating regular diet. The prev iously diagnosed duodenal ulcer does not appear to be actively bleeding. Hemoglobin is stable at 8.9. We will recommend continued therapy with proton pump inhibitor. Carafate may be helpful. The CLOtest for H. pylori was equivocal. He may require treatment based on culture for histology findings, however, no treatment is indicated at this time. Surgery will sign off Objective Vital Signs - Last 8 Hours Temp Pulse Resp BP Pulse Ox 10/12/18 07:53 98.2 F 65 16 123/67 96 10/12/18 04:32 97.9 F 63 16 100/55 95 Intake and Output 10/11/18 10/12/18 10/12/18 23:59 07:59 15:59 Intake Total 0 / 0 0 / 0 Output Total 150 / 1030 525 / 525 Balance -150 / -1030 -525 / -525 Intake: Oral 0 / 0 0 / 0 Output: Urine 150 / 1030 525 / 525 Other: Blood Glucose* 115 - General physical appearance well developed, well nourished, no pain - Respiratory normal expansion, normal respiratory effort, clear to percussion, clear to auscultation - Cardiovascular Cardiovascular exam: Present: RRR, no murmurs/rubs/gallops - Abdomen Abdomen: Present: bowel sounds present, soft, non tender - Neurologic CN 2-12 grossly intact, normal coordination, normal sensation - Psychiatric oriented to time, oriented to person, oriented to place, speech is normal, memory intact - Labs 10/12/18 04:00 10/12/18 04:00 Diabetes panel 10/12/18 Range/Units 04:00 Sodium 137 (136-145) mEq/L Potassium 3.7 (3.5-5.1) mEq/L Chloride 107 (98-107) mEq/L Carbon Dioxide 27 (23-29) mEq/L BUN 8 (8-23) mg/dL Creatinine 0.83 (0.70-1.30) mg/dL Glucose 112 H (70-105) mg/dL Calcium 7.3 L (8.6-10.3) mg/dL Calcium panel 10/12/18 Range/Units 04:00 Calcium 7.3 L (8.6-10.3) mg/dL Pituitary panel 10/12/18 Range/Units 04:00 Sodium 137 (136-145) mEq/L Potassium 3.7 (3.5-5.1) mEq/L Chloride 107 (98-107) mEq/L Carbon Dioxide 27 (23-29) mEq/L BUN 8 (8-23) mg/dL Creatinine 0.83 (0.70-1.30) mg/dL Glucose 112 H (70-105) mg/dL Calcium 7.3 L (8.6-10.3) mg/dL Adrenal panel 10/12/18 Range/Units 04:00 Sodium 137 (136-145) mEq/L Potassium 3.7 (3.5-5.1) mEq/L Chloride 107 (98-107) mEq/L Carbon Dioxide 27 (23-29) mEq/L BUN 8 (8-23) mg/dL Creatinine 0.83 (0.70-1.30) mg/dL Glucose 112 H (70-105) mg/dL Calcium 7.3 L (8.6-10.3) mg/dL Consult Discharge Plan - Plan Referrals: Santiago Camp DO [Primary Care Provider] -
[2018-10-12] MEDS: Sucralfate 1 GM TABLET PO SCH ×2 (09:19→12:02)
[2018-10-12] MEDS: Baclofen 10 MG TABLET PO SCH (09:20)
--- NOTE | 2018-10-12 10:43 | Discharge Summary ---
<Karlos Kc - Last Filed: 10/12/18 14:59> Orders not resulted at time of discharge: Pending orders 10/09/18 16:18 Surgical Pathology [PTH] Routine Date of Encounter: 10/12/18 - Discharge Diagnosis (1) Bright red blood per rectum Status: Acute (2) Acute duodenal ulcer with bleeding Status: Acute (3) Anemia Status: Acute Qualifiers: Anemia type: other cause Other causes of anemia: acute posthemorrhagic Qualified Code(s): D62 - Acute posthemorrhagic anemia (4) Hypertension Status: Chronic Qualifiers: Hypertension type: essential hypertension Qualified Code(s): I10 - Essential (primary) hypertension (5) DVT prophylaxis Status: Chronic (6) Alcohol abuse Status: Chronic Hospital course: Mr. Jimenez is a 63 year old male - Time Spent with Patient Total time spent providing and/or coordinating discharge services: - Discharge Medications Prescriptions: New Sucralfate [Carafate] 1 gm PO QIDAC #120 tablet Omeprazole [PriLOSEC] 40 mg PO BID #60 cap Continued Nitroglycerin [Nitrostat] 0.4 mg SL Q5M PRN PRN Reason: Chest Pain Aspirin 81 mg PO QAM Losartan [Cozaar] 50 mg PO DAILY Metoprolol [Lopressor] 25 mg PO BID Home Medications: Nitroglycerin [Nitrostat] 0.4 mg SL Q5M PRN 04/10/17 [History] Aspirin 81 mg PO QAM 10/08/18 [History] Losartan [Cozaar] 50 mg PO DAILY 10/08/18 [History] Metoprolol [Lopressor] 25 mg PO BID 10/08/18 [History] Omeprazole [PriLOSEC] 40 mg PO BID #60 cap 10/12/18 [Rx] Sucralfate [Carafate] 1 gm PO QIDAC #120 tablet 10/12/18 [Rx] Allergies/Adverse Reactions: Allergy/AdvReac Type Severity Reaction Status Date / Time No Known Allergies Allergy Verified 10/08/18 11:27 Date of admission: 10/08/18 15:39 Primary care physician: Santiago Camp DO Consults: 10/07/18 11:48 Consult to Gastroenterology [CONS] Routine Consulting Provider: [facility] Reason for Consult: GI bleed - BRBPR Time Notified: 11:48 Call Completed: Yes 10/07/18 16:41 Consult to Supervisor [employer] [CONS] Routine Reason for SW Consult: Alcohol dependence - Constitutional Vitals: Temp Pulse Resp BP Pulse Ox 98.1 F 72 16 109/65 96 10/12/18 14:12 10/12/18 14:12 10/12/18 14:12 10/12/18 14:12 10/12/18 14:12 - Patient Status Disposition: Home, Self-Care - Discharge Instructions Follow Up With: Santiago Camp DO [Primary Care Provider] - Additional Instructions: You were admitted for a GI bleed. EGD and colonoscopy showed you had a bleeding ulcer. The ulcer is no longer bleeding. Please take medications prescribed, abstain from alcohol, and follow-up with your primary care doctor as soon as possible. Please return to the emergency department if the following symptoms recur fever, shortness of breath, chest pain, vomiting blood or bloody diarrhea. Please Also return to the ED if there are any further concerning symptoms prior to your visit to your primary care doctor. - Attending Attestation I examined this patient and my medical decision-making was reviewed with the Resident Physician on 10/12/18. I agree with the documented findings, disposition and treatment plan as described except to the extent set forth below. Mr Jimenez has been admitted for acute GI bleed. He was transfused and underwent EGD twice. Had duodenal ulcer treated. His bleeding stopped and he is hemodynamically stable. He is afebrile and ready for discharge home. Exam: Alert. Comfortable. NC. EOMI. Mucus membranes dry. Heart reg No wheeze. Abd soft. No edema No rash. Plan: D/C home today. Follow up with PCP. D/C time 38min <Natalie Morel - Last Filed: 10/12/18 15:55> - NOTES TO OUTPATIENT PROVIDER Notes to Outpatient Provider: Patient presented to the ED with rectal bleeding. He was transfused with 7U pRBCS during his stay. An EGD and Colonoscopy was completed where they found an oozing duodenal ulcer. It was treated, with Epi during the procedure. Repeat EGD found the the ulcer was stable and not bleeding. he was discharged once medically stable. Orders not resulted at time of discharge: Pending orders 10/09/18 16:18 Surgical Pathology [PTH] Routine Date of Encounter: 10/12/18 Time of Encounter: 09:30 - Discharge Diagnosis (1) Bright red blood per rectum Priority: Primary Status: Acute Assessment and Plan: Currently stable and not bleeding: - continue PPI : Omeprazole - start Carafate - abstain from alcohol (2) GI bleed Priority: Secondary Status: Resolved Qualifiers: GI bleed type/associated pathology: unspecified gastrointestinal hemorrhage type Qualified Code(s): K92.2 - Gastrointestinal hemorrhage, unspecified (3) Excessive drinking of alcohol Priority: Secondary Status: Chronic Hospital course: Mr. Jimenez is a 63 year old male who presented to the ED with 1 day history of rectal bleeding. During his stay patient's H/H consistently low he was transfused accordingly. Patient was transfused with 7U pRBCS during his stay. Surgery was consulted An EGD and Colonoscopy was completed where they found an oozing duodenal ulcer. It was treated, with Epi during the procedure. Repeat EGD found the the ulcer was stable and not bleeding. He was discharged once medically stable. Discharge discussed with: patient - Time Spent with Patient Total time spent providing and/or coordinating discharge services: Date of admission: 10/08/18 15:39 Primary care physician: Santiago Camp DO Consults: 10/07/18 11:48 Consult to Gastroenterology [CONS] Routine Consulting Provider: Gastroenterology [facility] Reason for Consult: GI bleed - BRBPR Time Notified: 11:48 Call Completed: Yes 10/07/18 16:41 Consult to Supervisor [employer] [CONS] Routine Reason for SW Consult: Alcohol dependence Discharging clinician: Natalie Morel Anticipated date of discharge: 10/12/18 - Constitutional Vitals: Temp Pulse Resp BP Pulse Ox 97.5 F L 71 16 111/66 98 10/12/18 09:59 10/12/18 09:59 10/12/18 09:59 10/12/18 09:59 10/12/18 09:59 General appearance: Present: cooperative, A&O X 3, no acute distress, answers questions appropriately Exam: General: Alert and oriented. Sitting up in chair. Comfortable. Skin: Normal color. No rash. H: Normocephalic, atraumatic EENT: Mucus membranes moist. No adenopathy. Cardiovascular: Normal S1 & S2, no murmurs No tachycardia. Regular pulse. Lungs: CTAB, No wheezing, rhonchi or ralees. Abdomen: Soft, non-tender, Normal bowel sounds. Extremities: No deformity, no edema or tenderness, Neurological: Normal cognition and motor skills. Moves all extremities. Pulses: radial pulses normal +2/4 bilaterally UE and LE - Patient Status Functional capacity at discharge: independent ambulation Overall status at discharge: patient is back to baseline - Diet and Activity Activity: increase activity as tolerated Diet: advance to your usual diet, regular diet
--- NOTE | 2018-10-12 12:23 | Electrocardiograph Report ---
[address] [place], [place] [address] Test Date: 2018-10-07 Pat Name: Montrell Covert Department: EXAM10 Room: 12 Gender: M Cook Pressure: : 1955 Requested By: Donald Gutierrez Order Number: [id number] Reading MD: Job Sánchez Measurements Intervals [place] Rate: 82 P: 57 TX: 143 QRS: -34 QRSD: 110 T: 45 QT: 368 QTc: 430 Interpretive Statements Sinus rhythm Left axis deviation incomplete rbbb BASELINE ARTIFACT Electronically Signed On 10-12-2018 12:22:00 EDT by Job Sánchez
[2018-10-12 14:17] VITALS: BP 109/65
== END 2018-10-12 16:55 | disposition home or self-care (01) | DRG 377 ==
LOC: 3NENU 09:43 → EMEROOARM 09:43 → SUATTDRO 11:43 → 3NENU 12:10 → 3BNU 16:47 → ICNU 10-08 00:38 → 2NNU 10-10 14:58 → 3ANU 10-11 15:52
PROVIDERS: ADMIT Student in an Organized Health Care Education/Training Program; ATTEND Internal Medicine
PROC: ENDOEBX (2018-10-09 17:30)